=== PATIENT | male | born 1960 | race Caucasian/White ===

== ENCOUNTER → 2016-10-27 | Outpatient (CLI) | payer BC ==
[~2016-10-27] MED LIST: CZR50 PO; HYDC25 PO; SIMV20TA2 PO
[2016-10-27 14:00] LABS: BASO % 0.2 %; BASO ABS # 0.01 K/uL (0-0.2); COMPLETE YES; EOS % 2.8 %; HEMATOCRIT 45.5 % (42-52); IG% 0.2 %; LYMPH % 25.9 %; LYMPH ABS # 1.38 K/uL (1.2-3.4); MEAN CELL VOLUME 88.3 fL (80-100); MEAN CORPUSCULAR HEMOGLOBIN 31.5 pg (25-34); MEAN CORPUSCULAR HGB CONC 35.6 g/dl (32-36); MEAN PLATELET VOLUME 12.8 fL (7.4-10.4); MONO % 10.2 %; NEUT % 60.7 %; PLATELET COUNT 152 K/uL (130-400); RED BLOOD COUNT 5.15 M/uL (4.7-6.1); WHITE BLOOD COUNT 5.32 K/uL (4.8-10.8)
[2016-10-27 14:06] LABS: BLOOD UREA NITROGEN 30 mg/dl (7-18); BUN/CREATININE RATIO 34.4 (10-20); CALCIUM 8.9 mg/dl (8.5-10.1); CARBON DIOXIDE 29 mmol/L (21-32); CHLORIDE 108 mmol/L (98-107); CREATININE 0.86 mg/dl (0.60-1.40); GLUCOSE 98 mg/dl (70-99); SODIUM 142 mmol/L (136-145)
[2016-10-27 14:10] LABS: CHOLESTEROL 182 mg/dl (0-200); HDL CHOLESTEROL 60 mg/dl; TRIGLYCERIDES 91 mg/dl (0-150); VERY LOW DENSITY LIPOPROT CALC 18 mg/dl
== END | disposition home or self-care (01) ==
LOC: C.LABSPEC 12:43
PROVIDERS: ATTEND Internal Medicine
DX: E78.5 Hyperlipidemia, unspecified (principal); I10 Essential (primary) hypertension; M54.5 Low back pain

== ENCOUNTER → 2016-11-14 | Outpatient (CLI) | payer BC ==
--- NOTE | 2016-11-14 17:53 | DIAGNOSTIC IMAGING REPORT ---
MRI OF THE RIGHT SHOULDER CLINICAL HISTORY: Right shoulder pain. Limited range of motion. COMPARISON STUDY: No priors. TECHNIQUE: MRI of the right shoulder was performed utilizing various T1 and T2 weighted sequences in the axial, sagittal, coronal planes. IV contrast was not administered for this examination. Note that interpretation is suboptimal without plain film correlate. FINDINGS: Rotator cuff: There is tendinopathy with full-thickness rupture and retraction of both the supraspinatus and infraspinatus tendons. The tendons are retracted by at least 4 cm. There is tendinopathy with mild partial thickness tearing of the subscapularis tendon. The majority the fibers appear intact. The teres minor is preserved. There is subacromial and subdeltoid bursal fluid. Productive changes identified at the acromioclavicular joint. Biceps tendon: There is tendinopathy with high-grade partial-thickness tearing of the long head of the biceps tendon. The biceps tendon is likely Located within the bicipital groove. The anchor is maintained. Labrum: There is a large SLAP tear of the glenoid labrum. Shoulder joint: There is trace joint effusion. The articular cartilage over the glenoid appears maintained. There is marrow edema/contusion identified within the superior aspect of the glenoid. An age indeterminant Hill-Sachs lesion is suggested in the humeral head. There is no significant marrow edema at this site. A soft tissue Bankart lesion is suspected anteriorly. Mild superior subluxation of the humeral head is noted. Musculature and soft tissues: There is edema seen within the body of infraspinatus. Only minimal edema is identified within the body of supraspinatous. There is mild atrophy of both muscles, greater involving the infraspinatus. IMPRESSION: 1. There is full-thickness rupture of the supraspinatous and intraspinous tendons with at least 4 cm of retraction. 2. There is mild intramuscular edema involving supraspinatus and infraspinatus as well as mild atrophy. This is greater involving infraspinatus. 3. There is tendinopathy with high-grade partial thickness tearing of the long head of the biceps tendon. 4. Large SLAP tear of the glenoid labrum. 5. Suspect an age indeterminant and possibly chronic Hill-Sachs lesion in the humeral head. A soft tissue Bankart lesion is suspected. Correlate for a history of previous shoulder dislocation. 6. Tendinopathy and partial thickness tearing is seen involving the subscapularis tendon. 7. There is significant marrow edema involving the superior aspect of the glenoid, which could be on a degenerative basis or represent contusion. Electronically signed by: Keegan Matute M.D. 11/14/2016 5:51 PM Dictated Date/Time: 11/14/2016 5:41 PM
== END | disposition home or self-care (01) ==
LOC: C.MRIBC 15:52
PROVIDERS: ATTEND Orthopaedic Surgery Adult Reconstructive Orthopaedic Surgery
DX: M25.511 Pain in right shoulder (principal)

== ENCOUNTER 2018-09-26 05:42 | Inpatient (IN) ==
--- NOTE | 2018-09-09 14:41 | PAT Medication Instructions ---
Medication Instructions Date of Service September 09, 2018 Home Medications losartan-hydrochlorothiazide 1 tab PO QAM multivitamin 1 tab PO QAM omega 7-gjf-rvr-fish oil [Fish Oil] 1 cap PO HS simvastatin 40 mg PO HS STOP taking 2 weeks before surgery (or as soon as possible if surgery is within 2 weeks) omega 8-ery-ici-fish oil [Fish Oil] 1 cap PO HS DO NOT take the morning of surgery losartan-hydrochlorothiazide 1 tab PO QAM multivitamin 1 tab PO QAM Take evening before surgery simvastatin 40 mg PO HS Other Notes If you have any questions please call us at [phone] or [phone] or [phone] or [phone]
--- NOTE | 2018-09-09 15:00 | Anesthesiology Consultation ---
Date of Service September 09, 2018 Assessment & Plan (1) Encounter for pre-operative examination: Chart Review Chart Review: Acceptable Risk for Surgery and Patient seen in Pre Admission Testing Teaching & Discussion Pre-Anesthesia Teaching/Discussion Notes: Instructed NPO after midnight before surgery,except medications with 15 cc of water. Medication instructions provided according to the PAT guidelines. History Surgery Operation Date: 09/26/18 07:45 Proposed Procedures p L2-S1 Posterior Lumbar Decompress/Fusion Possible Iliac Bolts - Haider Olivares DO Height/Weight Height: 6 ft 0.25 in Weight: 106.4 kg Allergies Allergy/AdvReac Type Severity Reaction Status Date / Time No Known Allergies Allergy Verified 09/03/18 07:28 Medications Home Medications Medication Instructions Recorded Confirmed Last Taken losartan-hydrochlorothiazide 1 tab PO QAM 09/03/18 09/03/18 Unknown multivitamin 1 tab PO QAM 09/03/18 09/03/18 Unknown omega 5-glf-smd-fish oil [Fish Oil] 1 cap PO HS 09/03/18 09/03/18 Unknown simvastatin 40 mg PO HS 09/03/18 09/03/18 Unknown Past Medical History Medical History Chronic back pain WITH LLE RADICULOPATHY Hyperlipidemia Hypertension Obesity Past Family History Family History Father Family hx of colon cancer Past Surgical History Surgical History H/O knee surgery LEFT H/O shoulder surgery B/L History of colonoscopy History of neck surgery MULTIPLE; FUSION Past Anesthesia History No Hx of Anesthesia Complications (EXCEPT PONV X 1 EPISODE) and No Family Hx of Anesthesia Complications History of PONV Yes (X1 EPISODE) Motion Sickness Screening History of Motion Sickness: No Social History Smoking Status: Never smoker Do You Dip or Chew Tobacco: No (QUIT 15-20 YRS AGO) Hx Alcohol Use: Yes (RARELY) Alcohol type: hard liquor alcohol intake frequency: holidays/special occasions only Hx Substance Use: No substance use type: does not use Exercise / Class Metabolic Activity II 4-5 Yardwork/Stairs/Walk up hill Review of Systems LBP with LLE radiculopathy. Patient denies chest pain, shortness of breath, reflux, cough, wheezing, palpitations. Physical Exam Vital Signs VITALS BP 154/98 P 59 TEMP 97.8 SP02 95%RA RESP 18 PHYSICAL Mildly decreased cervical extension 2/2 cervicalgia/prior fusion. Full TMJ range of motion. TMD 4 finger breaths Mallampati Score 2 Dentition: intact, cap on molar Lungs: clear throughout to auscultation Cardiac: regular rate and rhythm, no murmurs noted Spine: normal Carotid arteries: negative bruit Extremities: no edema Testing Electrocardiogram Date: 09/09/18 Findings: + SB @ (59) Chest X-Ray Date: 09/09/18 Findings: + NAD Anterior cervical spine fusion is noted. Laboratory Results 09/09/18 15:20 09/09/18 15:20 Blood Type O Positive 09/09/18 15:20 Antibody Screen NEGATIVE 09/09/18 15:20 PT 10.3 Seconds (9.0-12.0) 09/09/18 15:20 INR 1.0 (0.9-1.1) 09/09/18 15:20 APTT 28.2 Seconds (21.0-31.0) 09/09/18 15:20 Urine Color Yellow 09/09/18 15:20 Urine Appearance Clear (Clear) 09/09/18 15:20 Urine pH 5.5 (4.5-7.5) 09/09/18 15:20 Ur Specific [place] 1.023 (1.000-1.030) 09/09/18 15:20 Urine Protein Negative (Negative) 09/09/18 15:20 Urine Glucose (UA) Negative (Negative) 09/09/18 15:20 Urine Ketones Negative (Negative) 09/09/18 15:20 Urine Nitrite Negative (Negative) 09/09/18 15:20 Ur Leukocyte Esterase Negative (Negative) 09/09/18 15:20
--- NOTE | 2018-09-09 15:43 | XRay Report ---
XR chest Pre-admission PA/Lat CLINICAL HISTORY: Preoperative evaluation. COMPARISON STUDY: Chest radiograph March 26, 2013. FINDINGS: Anterior cervical spine fusion is noted. There is no pneumothorax or pleural effusion. Ther e is no consolidation or evidence for pulmonary edema. Cardiac size is normal. Mediastinal contours a re normal. The appearance of the chest is unchanged. IMPRESSION: No acute cardiopulmonary findings. Electronically signed by: Andrzej Adams M.D. 09/09/2018 3:41 PM
[2018-09-09 15:56] LABS: Basophils # (auto) 0.01 K/uL (0-0.2); Basophils % (auto) 0.2 %; Eosinophils # (auto) 0.07 K/uL (0-0.5); Eosinophils % (auto) 1.1 %; Hematocrit (blood only) 46.2 % (42-52); Hemoglobin 16.2 g/dL (14.0-18.0); Lymphocytes # (auto) 2.08 K/uL (1.2-3.4); Lymphocytes % (auto) 33.5 %; Mean Corpuscular Hgb Conc 35.1 g/dL (32-36); Mean Corpuscular Volume 88.8 fL (80-100); Mean Platelet Volume 11.9 fL (7.4-10.4); Monocytes # (auto) 0.41 K/uL (0.11-0.59); Monocytes % (auto) 6.6 %; Neutrophils # (auto) 3.64 K/uL (1.4-6.5); Neutrophils % (auto) 58.6 %; Platelet Count 144 K/uL (130-400); RDW Coefficient of Variation 12.8 % (11.5-14.5); RDW Standard Deviation 41.1 fL (36.4-46.3); White Blood Count 6.21 K/uL (4.8-10.8)
[2018-09-09 16:05] LABS: BUN Creatinine Ratio 23.5 (10-20); Calcium 8.6 mg/dl (8.5-10.1); Est GFR (African American) 98.1; Est GFR (Non-African American) 84.6
[2018-09-09 16:06] LABS: Partial Thromboplastin Ratio 1.1; Partial Thromboplastin Time 28.2 Seconds (21.0-31.0); Prothrombin Time 10.3 Seconds (9.0-12.0)
[2018-09-09 16:18] LABS: Appearance Urine Clear (Clear); Bilirubin Urine Negative (Negative); Blood Urine Negative (Negative); Color Urine Yellow; Glucose Urine UA Negative (Negative); Ketones Urine Negative (Negative); Leukocyte Esterase Urine Negative (Negative); Nitrite Urine Negative (Negative); Protein Urine Negative (Negative); Specific Gravity Urine 1.023 (1.000-1.030); Urobilinogen Urine Negative (Negative); pH Urine 5.5 (4.5-7.5)
[~2018-09-26 05:42] MED LIST changes: -CZR50 PO; +GABAPENTIN 300 MG x 2 PO SCH; -HYDC25 PO; -SIMV20TA2 PO
[2018-09-26] MEDS ORDERED: CEFAZOLIN 2000MG 2,000 MG/15 ML SYR IV SCH (06:00)
[2018-09-26] MEDS ORDERED: CeleBREX 200 MG CAP PO SCH (06:00)
[2018-09-26] MEDS ORDERED: ACETAMINOPHEN 500 MG TAB PO SCH (06:00)
[2018-09-26] MEDS ORDERED: GABAPENTIN 300 MG x 2 PO SCH (06:00)
[2018-09-26] MEDS ORDERED: LR 15ML/HR IV SCH (06:00)
[2018-09-26] MEDS ORDERED: ATROPINE SULFATE 0.1 MG/ML 10ML SYR IV PRN (06:21)
[2018-09-26] MEDS ORDERED: ePHEDrine sulfate 50 MG/ML AMP IV PRN (06:21)
[2018-09-26] MEDS ORDERED: ONDANSETRON INJ 2 MG/ML 2 ML VIAL IV PRN ×2 (06:21→11:58)
[2018-09-26] MEDS ORDERED: HYDROmorphone INJ 2 MG/ML SYR/VIAL IV PRN (06:21)
[2018-09-26] MEDS ORDERED: LABETALOL HCL IV 5 MG/ML 20ML IV PRN (06:21)
[2018-09-26] MEDS ORDERED: fentaNYL citrate 100 MCG/2 ML VIAL IV PRN (06:21)
[2018-09-26] MEDS ORDERED: ROCURONIUM BROMIDE 10 MG/ML 5 ML VIAL ONE (06:48)
[2018-09-26] MEDS ORDERED: GLYCOPYRROLATE 0.2 MG/ML VIAL ONE (06:48)
[2018-09-26] MEDS ORDERED: LIDOCAINE HCL 2% 2 ML VIAL/AMP(20MG/ML) INFIL ONE (06:48)
[2018-09-26] MEDS ORDERED: PROPOFOL IV EMULSION 10 MG/ML 20 ML VIAL IV ONE (06:48)
[2018-09-26] MEDS ORDERED: MIDAZOLAM HCL 1 MG/ML 2ML VIAL ONE (06:48)
[2018-09-26] MEDS ORDERED: fentaNYL citrate 100 MCG/2 ML VIAL ONE ×2 (06:48→08:11)
[2018-09-26] MEDS ORDERED: BUPIVACAINE/EPINEPHRINE 0.5% MPF 1:200,000 30 ML VIAL ONE (06:50)
[2018-09-26] MEDS ORDERED: BACITRACIN INJ 50,000 UNIT VIAL ONE (06:50)
--- NOTE | 2018-09-26 07:31 | History & Physical Bridge Note ---
Date of Service September 26, 2018 History & Physical Bridge Note I have examined the patient, reviewed the History & Physical and in the interval since the performance of the History & Physical I have noted the following changes of clinical significance: no changes noted
--- NOTE | 2018-09-26 07:32 | History & Physical Report ---
Date of Service September 26, 2018 Assessment & Plan (1) Neurogenic claudication due to lumbar spinal stenosis: Posterior lumbar decompression and fusion L2-S1 with possible iliac bolts Present on Admission?: Yes History of Present Illness Chief Complaint: Back and leg pain Primary Care Provider: Amrik Beavers MD This is a 58-year-old male who presents with chronic persistent back and leg pain. After failing extensive course of nonoperative care is here for surgical intervention. Allergies Allergy/AdvReac Type Severity Reaction Status Date / Time No Known Allergies Allergy Verified 09/26/18 05:58 Home Medications Home Medications Medication Instructions Recorded Confirmed Type losartan-hydrochlorothiazide 1 tab PO QAM 09/03/18 09/26/18 History multivitamin 1 tab PO QAM 09/03/18 09/26/18 History omega 8-ytv-tur-fish oil [Fish Oil] 1 cap PO HS 09/03/18 09/26/18 History simvastatin 40 mg PO HS 09/03/18 09/26/18 History Past Med/Surg History Medical History Chronic back pain WITH LLE RADICULOPATHY Hyperlipidemia Hypertension Obesity Surgical History H/O knee surgery LEFT H/O shoulder surgery B/L History of colonoscopy History of neck surgery MULTIPLE; FUSION Family History Father Family hx of colon cancer Social History Preferred Language: Estonian Communication Ability: Effective Practice Assistant Required: No Beliefs That Will Affect Care: None Current Living Situation: Spouse Other Information That Helps Us Care for You: No Feels Safe at Home: Yes Safety Concerns: Feels Safe At This Time Smoking Status: Never smoker Hx Alcohol Use: Yes (RARELY) Hx Substance Use: No Physical Exam Vital Signs (Past 24 Hours): Last Vital Signs Temp 36.7 C 09/26/18 06:36 Pulse 65 09/26/18 06:36 Resp 18 09/26/18 06:36 BP 162/99 H 09/26/18 06:36 Pulse Ox 96 09/26/18 06:36 Results & Data Medications Administered Acetaminophen (Tylenol) 1,000 mg PO PREOP RAISSA Stop: 09/26/18 18:00 Last Admin: 09/26/18 06:21 Dose: 1,000 mg Documented by: [id number] Celecoxib (Celebrex) 200 mg PO PREOP RAISSA Stop: 09/26/18 18:00 Last Admin: 09/26/18 06:21 Dose: 200 mg Documented by: [id number] Gabapentin (Neurontin) 600 mg PO PREOP RAISSA Stop: 09/26/18 18:00 Last Admin: 09/26/18 06:21 Dose: 600 mg Documented by: [id number] Lactated Ringer's (Lr) 1,000 mls @ 15 mls/hr IV .Q24H RAISSA Stop: 09/27/18 05:59 Last Admin: 09/26/18 06:22 Dose: 15 mls/hr Documented by: [id number]
[2018-09-26] MEDS ORDERED: ONDANSETRON INJ 2 MG/ML 2 ML VIAL ONE (08:09)
[2018-09-26] MEDS ORDERED: DEXAMETHASONE SOD INJ 4 MG/ML VIAL ONE (08:09)
[2018-09-26] MEDS ORDERED: HYDROmorphone INJ 2 MG/ML SYR/VIAL ONE (08:11)
[2018-09-26] MEDS ORDERED: PHENYLEPHRINE 100MCG/ML 5ML SYR ONE (08:22)
[2018-09-26] MEDS ORDERED: ePHEDrine sulfate 50 MG/ML SYR ONE (08:22)
[2018-09-26] MEDS ORDERED: FLOSEAL HEMOSTATIC MATRIX 10ML TOP ONE (08:29)
--- NOTE | 2018-09-26 10:42 | Operative Report ---
Post Operative Report Pre & Post Diagnosis Operation Date: 09/26/18 07:45 Pre-Op Diagnosis: LUMBAR SPINAL STENOSIS W/NEUROGENIC CLAUDICATION Post-Op Diagnosis: LUMBAR SPINAL STENOSIS W/NEUROGENIC CLAUDICATION Procedure Operation Date: 09/26/18 07:45 Actual Procedures #1 lumbar decompression bilateral medial facetectomies and foraminotomies L2-3 L3-4 L4-5 L5-S1. #2 posterior spinal fusion L2-3 L3-4 L4-5 L5-S1. #3 placement of posterior segmental instrumentation L2-S1. #4 interbody fusion L4-5 per #5 placement of titanium 10 x 26 mm at L4-5. #6 placement of locally harvested morselized autograft in the posterior gutters. #7 placement infuse collagen sponge bone mass graft in the posterior lateral gutters and ostial amp and interbody space. Surgeon Haider Olivares DO Rehabilitation Counsellor Loren Hanks Estimated Blood Loss 700 Findings Consistent with Post-Op Diagnosis Specimens None Description of Procedure Patient was met with preoperatively case discussed all questions addressed. After informed consent obtained patient was taken to the operative suite underwent intubation and placed in a prone position on the Jimmy table on top of the Carl frame. All bony prominences well-padded eyes inspected to ensure no external pressure placed upon the. This point the lumbar spine was prepped and draped in a normal sterile fashion. Sharp dissection with the assistance of Bovie cautery was performed down to and exposing the lamina and transverse processes of L2 L3-L4-L5 and sacral ala bilaterally. From a caudal to cephalad fashion complete laminectomy of L5 L4 L3 and L2 was performed including bilateral medial facetectomies and foraminotomies addressing severe spinal stenosis. Pedicle screws were then placed in L2 L3-L4-L5 and S1 levels bilaterally with the assistance of fluoroscopy and the appropriately sized pankaj contoured and placed. Through a transforaminal approach and left complete discectomy was performed in plate coated to subcortical bleeding bone and a 10 x 26 mm titanium cage filled with osteo-amp bone graft tapped in position. Rods were then locked into final position bilaterally. The transverse processes of L2 L3-L4-L5 and sacral ala bur to subcortical bleeding bone. Infuse collagen sponge master graft local autograft placed in the posterior lateral gutters. 15 round NICOLE drain inserted. Incision was then closed with 1 Vicryl fascia 2-0 Vicryl subcutaneously and 4-0 Monocryl for final skin closure. Please note Loren Hanks present throughout the entire procedure involved in patient positioning complex portions of the surgery and final skin closure. I attest to the content of the Intraoperative Record and any orders documented therein. Any exceptions are noted below.
--- NOTE | 2018-09-26 10:54 | Fluoroscopy Report ---
FL lumbar spine 2-3V CLINICAL HISTORY: L2-S1 LUMBAR DECOMPRESSION/FUSION POSSIBLE ILIAC BOLTS COMPARISON STUDY: Lumbar spine radiographs October 14, 2010. FLUOROSCOPY TIME: 5.7 seconds. FLUOROSCOPIC IMAGES: 4 FINDINGS: These images demonstrate an L4-L5 discectomy with interbody spacer placement. There is a po sterior decompression. There are bilateral pedicle screws at the L2, L3, L4, L5 and S1 levels with in terconnecting rods. Hardware is intact. There is mild levoscoliosis. IMPRESSION: Fluoroscopic images demonstrating an L4-5 discectomy and L2-S1 posterior fusion with dec ompression. Electronically signed by: Andrzej Adams M.D. 09/26/2018 10:53 AM
[2018-09-26] MEDS ORDERED: HYDROmorphone INJ 0.5 MG/0.5 ML SYR IV PRN (11:58)
[2018-09-26] MEDS ORDERED: DO NOT ADMINISTER PNEUMOCOCCAL VACCINE PRN (11:58)
[2018-09-26] MEDS ORDERED: SOD PHOSPHATE/SOD BIPHOSPHATE ENEMA 132 ML BTL PR PRN (11:58)
[2018-09-26] MEDS ORDERED: ONDANSETRON 4 MG TAB PO PRN (11:58)
[2018-09-26] MEDS ORDERED: FAMOTIDINE 20 MG TAB PO PRN (11:58)
[2018-09-26] MEDS ORDERED: ALUMINUM/MAGNESIUM SUSP 30 ML UDC PO PRN (11:58)
[2018-09-26] MEDS ORDERED: PROMETHAZINE HCL 12.5 MG in SODIUM CHLORIDE 0.9% 50 ML IV PRN (11:58)
[2018-09-26] MEDS ORDERED: METOCLOPRAMIDE HCL INJ 5 MG/ML 2 ML VIAL IV PRN (11:58)
[2018-09-26] MEDS ORDERED: MAGNESIUM HYDROXIDE SUSP 30 ML UDC PO PRN (11:58)
[2018-09-26] MEDS ORDERED: LORazepam 0.5 MG/1 ML VIAL IV PRN (11:58)
[2018-09-26] MEDS ORDERED: DO NOT ADMINISTER FLU VACCINE PRN (11:58)
[2018-09-26] MEDS ORDERED: BISACODYL 10 MG SUPP PR PRN (11:58)
[2018-09-26] MEDS ORDERED: LORazepam 0.5 MG TAB PO PRN (11:58)
--- NOTE | 2018-09-26 11:59 | Anesthesiology Progress Note ---
Date of Service September 26, 2018 Anesthesia Post Procedure Vital Signs Vital Signs: Temp Pulse Pulse Resp BP Pulse Ox 09/26/18 11:40 36.3 C L 48 L 12 102/59 L 96 09/26/18 11:30 36.3 C L 47 L 13 105/60 94 09/26/18 11:20 45 L 11 L 93/57 L 96 09/26/18 11:10 45 L 16 106/61 96 09/26/18 11:02 36.8 C 53 L 16 106/59 L 96 09/26/18 06:36 36.7 C 65 18 162/99 H 96 Notes Mental Status: alert / awake / arousable and participated in evaluation Patient Amnestic to Procedure: Yes Nausea / Vomiting: adequately controlled Pain: adequately controlled Airway Patency, RR, SpO2: stable & adequate BP & HR: stable & adequate Hydration State: stable & adequate Anesthetic Complications: no major complications apparent and Pt Satisfied with anesthetic care
[2018-09-26] MEDS ORDERED: NEOSTIGMINE METHYLSULFATE 1 MG/ML 10ML VIAL ONE (12:21)
[2018-09-26] MEDS: KETOROLAC 30 MG/ML VIAL IV SCH ×2 (13:29→19:35)
[2018-09-26] MEDS ORDERED: ACETAMINOPHEN 500 MG TAB PO PRN (14:00)
[2018-09-26] MEDS ORDERED: ACETAMINOPHEN 1,000 MG/100 ML VIAL IV PRN (14:00)
[2018-09-26] MEDS: CEFAZOLIN 2000MG 2,000 MG/15 ML SYR IV SCH ×2 (15:57→23:14)
[2018-09-26] MEDS: LACTATED RINGER'S 1,000 ML IV SCH (20:33)
[2018-09-26] MEDS: SIMVASTATIN 40 MG TAB PO SCH (20:33)
[2018-09-26] MEDS: DOCUSATE SODIUM/SENNA 50/8.6MG TAB PO SCH (20:33)
[2018-09-26] MEDS: OXYCODONE HCL IR 5 MG TAB (IMMEDIATE RELEASE) PO PRN (23:13)
[2018-09-27] MEDS: KETOROLAC 30 MG/ML VIAL IV SCH ×2 (00:35→05:57)
[2018-09-27] MEDS: POLYETHYLENE (MIRALAX) 17 GM PACK PO SCH ×3 (05:56→19:26)
[2018-09-27 06:24] LABS: Eosinophils # (auto) 0.02 K/uL (0-0.5); Eosinophils % (auto) 0.2 %; Hemoglobin 11.9 g/dL (14.0-18.0); Immature Granulocytes # (auto) 0.02 K/uL (0.00-0.02); Immature Granulocytes % (auto) 0.2 %; Lymphocytes # (auto) 1.54 K/uL (1.2-3.4); Lymphocytes % (auto) 14.1 %; Mean Corpuscular Volume 90.9 fL (80-100); Mean Platelet Volume 11.2 fL (7.4-10.4); Monocytes # (auto) 0.87 K/uL (0.11-0.59); Neutrophils # (auto) 8.47 K/uL (1.4-6.5); Neutrophils % (auto) 77.5 %; Platelet Count 110 K/uL (130-400); RDW Coefficient of Variation 13.2 % (11.5-14.5); RDW Standard Deviation 43.3 fL (36.4-46.3); Red Blood Count 3.85 M/uL (4.7-6.1); White Blood Count 10.92 K/uL (4.8-10.8)
[2018-09-27 06:53] LABS: BUN Creatinine Ratio 18.9 (10-20); Calcium 7.7 mg/dl (8.5-10.1); Creatinine Clr Calc Pharmacy 111.1 ml/min; Est GFR (African American) 105.9; Est GFR (Non-African American) 91.4; Potassium 3.6 mmol/L (3.5-5.1)
--- NOTE | 2018-09-27 08:26 | Anesthesiology Progress Note ---
Date of Service September 27, 2018 Anesthesia Post Procedure Vital Signs Vital Signs: Temp Pulse Pulse Resp BP BP Pulse Ox 09/27/18 07:04 36.7 C 63 18 100/66 95 09/27/18 03:03 36.7 C 64 16 106/67 95 09/26/18 22:57 36.4 C L 64 16 97/58 L 94 09/26/18 21:09 36.6 C 73 18 106/67 97 09/26/18 15:00 36.4 C L 72 18 99/63 L 93 09/26/18 13:58 54 L 18 107/67 96 09/26/18 13:00 75 18 89/54 L 93/65 L 95 09/26/18 12:28 53 L 16 102/63 91 09/26/18 12:16 36.7 C 51 L 12 104/66 95 09/26/18 12:00 36.7 C 51 L 12 104/66 95 09/26/18 11:40 36.3 C L 48 L 12 102/59 L 96 09/26/18 11:30 36.3 C L 47 L 13 105/60 94 09/26/18 11:20 45 L 11 L 93/57 L 96 09/26/18 11:10 45 L 16 106/61 96 09/26/18 11:02 36.8 C 53 L 16 106/59 L 96 Pain Intensity Lower Medial Back: Pain Intensity: 5 Notes Mental Status: alert / awake / arousable Patient Amnestic to Procedure: Yes Nausea / Vomiting: adequately controlled Pain: adequately controlled Airway Patency, RR, SpO2: stable & adequate BP & HR: stable & adequate Hydration State: stable & adequate Anesthetic Complications: no major complications apparent and Pt Satisfied with anesthetic care
[2018-09-27] MEDS: MULTIVITAMIN TAB PO SCH (09:19)
[2018-09-27] MEDS: TRAMADOL HCL 50 MG TABLET PO PRN ×2 (09:19→15:27)
[2018-09-27] MEDS: LOSARTAN/HCTZ 50/12.5MG TAB PO SCH (09:20)
--- NOTE | 2018-09-27 13:13 | Orthopedic Progress Note ---
Date of Service September 27, 2018 Assessment & Plan (1) Neurogenic claudication due to lumbar spinal stenosis: Patient is doing quite well. We will continue with physical therapy. Monitor NICOLE output. Advance his bowel regiment anticipate discharge home this weekend. Present on Admission?: Yes Subjective Patient's back pain is controlled leg symptoms are markedly improved. Physical Exam Vital Signs (Past 24 Hours): Last Vital Signs Temp 36.7 C 09/27/18 11:23 Pulse 73 09/27/18 11:23 Resp 17 09/27/18 11:23 BP 114/72 09/27/18 11:23 Pulse Ox 99 09/27/18 11:23 Physical Exam: On physical exam he is in the chair at the bedside. His medical device sales strength testing. He appears comfortable.
[2018-09-27] MEDS: SODIUM CHLORIDE 0.9% 1000ML 1,000 ML IV SCH ×2 (15:25→19:53)
[2018-09-27] MEDS: DOCUSATE SODIUM/SENNA 50/8.6MG TAB PO SCH (21:00)
[2018-09-27] MEDS: SIMVASTATIN 40 MG TAB PO SCH (21:01)
[2018-09-27] MEDS: OXYCODONE HCL IR 5 MG TAB (IMMEDIATE RELEASE) PO PRN (23:42)
[2018-09-28] MEDS: POLYETHYLENE (MIRALAX) 17 GM PACK PO SCH (00:19)
[2018-09-28] MEDS: OXYCODONE HCL IR 5 MG TAB (IMMEDIATE RELEASE) PO PRN ×3 (09:37→23:43)
[2018-09-28] MEDS: LOSARTAN/HCTZ 50/12.5MG TAB PO SCH (09:37)
[2018-09-28] MEDS: MULTIVITAMIN TAB PO SCH (09:37)
--- NOTE | 2018-09-28 10:20 | Orthopedic Progress Note ---
Date of Service September 28, 2018 Assessment & Plan (1) Neurogenic claudication due to lumbar spinal stenosis: This time we will continue physical therapy finances activity as tolerated most likely discharge home tomorrow. Present on Admission?: Yes Subjective Patient's back pain is controlled leg symptoms improved. Physical Exam Vital Signs (Past 24 Hours): Last Vital Signs Temp 37.0 C 09/28/18 08:37 Pulse 75 09/28/18 08:37 Resp 18 09/28/18 08:37 BP 121/84 09/28/18 08:37 Pulse Ox 96 09/28/18 08:37 Physical Exam: Patient is in the chair at the bedside. Is good strength test ing. Appears comfortable.
[2018-09-28] MEDS: LACTATED RINGER'S 1,000 ML IV SCH ×2 (13:37→13:38)
[2018-09-28] MEDS: SIMVASTATIN 40 MG TAB PO SCH (20:36)
[2018-09-28] MEDS: DOCUSATE SODIUM/SENNA 50/8.6MG TAB PO SCH (20:36)
[2018-09-29] MEDS: OXYCODONE HCL IR 5 MG TAB (IMMEDIATE RELEASE) PO PRN ×2 (07:29→12:21)
[2018-09-29] MEDS: LOSARTAN/HCTZ 50/12.5MG TAB PO SCH (08:29)
[2018-09-29] MEDS: MULTIVITAMIN TAB PO SCH (08:29)
--- NOTE | 2018-09-29 11:25 | Discharge Summary ---
Date of Service September 29, 2018 Admission HPI Per Admitting Provider This is a 58-year-old male who presents with chronic persistent back and leg pain. After failing extensive course of nonoperative care is here for surgical intervention. Principal Diagnosis Lumbar spinal stenosis with neurogenic claudication Discharge Data Allergies Allergy/AdvReac Type Severity Reaction Status Date / Time No Known Allergies Allergy Verified 09/26/18 05:58 Consultations 09/26/18 11:58 Consult Case Management - Discharge Planning Routine Procedures Performed Operation Date: 09/26/18 07:45 Actual Procedures p L2-S1 Posterior Lumbar Decompress, Instrumented Fusion, Use of Osteoamp and Infuse. - Haider Olivares DO Ordered Studies 09/26/18 07:45 FL fluoroscopy <1hr Routine FL lumbar spine 2-3V Routine Hospital Course (1) Neurogenic claudication due to lumbar spinal stenosis: Patient underwent multilevel lumbar decompression fusion tolerated this well was taken to the orthopedic floor postoperative. Postop day 1 he was up and ambulating well. His leg pain improved. Progressive postop day #2 on postop day #3. Subsequently discharged home. Discharge orders and instructions found in the chart for further review. Total Time Total Time Spent Total Time Spent (In Minutes): Not applicable Discharge Plan Discharge Items Patient Disposition: Home - Self-Care Reason For Visit: LUMBAR SPINAL STENOSIS W/NEUROGENIC CLAUDICATION Discharge Diagnosis: lumbar stenosis Discharge Goals: Decrease discomfort Activity: Per 'Additional Instructions' section Non-emergency contact: Primary Care Provider Call non-emergency contact if: you have any medication questions Follow-up/Referrals: Amrik Beavers MD [Primary Care Provider] - Diet: Regular Addtl Provider Instructions: ACTIVITY RECOMMENDATIONS: SELF CARE INSTRUCTIONS AFTER THORACIC/LUMBAR FUSIONS 1. You may walk to your tolerance. It is good exercise for your legs and back. Expect some back and intermittent leg aches and pains. 2. You may perform "counter-top" level activities (make a sandwich, sky with a project, etc.). 3. No bending or lifting of more than 10 pounds or back twisting of any nature (roll like a log when turning in bed). 4. You may ride in a car for 20-30 minutes at a time. No driving until after your first visit with your doctor. 5. Frequent changes of position and restricting sitting to 30 minutes at a time will help limit the amount of back spasms and stiffness you may experience. 6. You may discontinue the use of ambulatory aids (cane, crutches, etc.) once your strength and confidence allow. 7. You may wood tile installation helper the shower and let water strike your incision when you arrive home at least once daily. Do not take a tub bath, sit in a hot tub or go into a swimming pool until after your first recheck in the office. SPECIAL CARE INSTRUCTIONS: VERY IMPORTANT TO READ AND REVIEW A. Your surgical incision has been closed with a cosmetic suture under the skin that will dissolve in about 6 weeks. In 14 days, you can use a pair of clean scissors and cut the suture that is left outside of the skin at the ends of your incision. 1. The small skin tapes can be removed 7 days after surgery if they have not fallen off by that point. 2. You may keep the wound open to air as much as possible to promote healing after post-op day number 5 unless told otherwise by your doctor. 3. If you think the wound looks like it is becoming infected (redness or worsening drainage) and/or you are experiencing fever, chill or worsening back pain and muscle spasms, contact the office so that we may evaluate you as soon as possible. B. Complications are uncommon, but please contact us if you have any signs or symptoms of: 1. wound infection (fever higher than 102.5 degrees F, redness, separation of wound, drainage, or increasing pain from the incision) 2. blood clots in legs (pain, swelling, redness and warmth in legs) 3. urinary tract infection (fever higher than 102.5 degrees F, burning upon urination or increased frequency of urination) 4. nerve problems (inability to walk on your toes or heels, numbness, loss of bowel or bladder control) 5. any other symptoms that concern you C. Please call the office at if you have any concerns or questions about your operation or recovery. D. No smoking! Smoking drastically decreases the chance of a solid fusion. E. Do not take any anti-inflammatory medications (Indocin, Advil, Motrin, Aspirin, Naprosyn, etc.) as these may inhibit the chance of a solid fusion. Tylenol is okay to take for pain. MANAGING PAIN AFTER SPINAL SURGERY 1. Narcotic medication is intended for short-term use and will be provided for surgical pain. Surgical pain usually lasts for a period of 4-6 weeks. Narcotic medication includes Percocet, Vicodin, Darvocet, Tylenol #3 or Lortab. 2. Longer-term pain is more appropriately treated with non-narcotic medication such as Tylenol ES. 3. Muscle spasm is not appropriately treated with narcotics. Muscle relaxers such as Soma, Flexeril or Skelaxin can be used along with Tylenol ES. 4. Remember that we all live with some "aches and pains". This is not unusual or uncommon after an injury or as we get older. a. Back pain is expected and may include muscle spasms for 4 to 6 weeks after surgery. The pain should gradually improve. If the pain worsens for no apparent reason, please contact the office. b. Intermittent leg pain may also be experienced and should not be concerned about unless it worsens for no apparent reason. If so, please contact the office. 5. We will provide appropriate medication within the normal guidelines of their prescribed use. We will also be very cautious and aware of potential abuse and extended duration of patients' medication needs. a. Pain medications are for your comfort and to assist with sleep and rest so that the tissue can heal. They are not provided in order to return to normal activity and should not be used through the day. To do so or worsening pain at night can result from ongoing tissue damage and development of tolerance to the prescribed medicine. 6. Please allow 2-3 days to process refills. Prescriptions will not be mailed but must be picked up at the office. FOLLOW UP VISIT: Keep your scheduled follow-up appointment. Any questions, please call the office at . Prescriptions: New tramadol 50 mg Tablet 50 mg PO Q4H PRN (Reason: Pain, Mild) Qty: 30 RF: 0 oxycodone 5 mg Tablet 5 mg PO Q4H PRN (Reason: Pain, Severe) Qty: 30 RF: 0 Continued simvastatin 40 mg Tablet 40 mg PO HS RF: 0 losartan-hydrochlorothiazide 50-12.5 mg Tablet 1 tab PO QAM RF: 0 multivitamin Tablet 1 tab PO QAM RF: 0 omega 5-hcl-vya-fish oil [Fish Oil] 1,000 mg (120 mg-180 mg) Capsule 1 cap PO HS RF: 0 Stand-Alone Forms: [facility] Discharge Orders: Discharge Order (Routine); Ordered 09/29/18 Ordered By: Haider Olivares Admission Data Admit Date/Time: 09/26/18 10:43 Attending Provider: Haider Olivares Admit Provider: Haider Olivares Primary Care Provider: Amrik Beavers Service: Surgical Services Other Interventions: Discharge Summary Assessment (RN) Last Done: 09/29/18 11:18
== END 2018-09-29 12:32 | disposition home or self-care (01) | DRG 455 ==
LOC: ASU 05:42 → 3E 10:43

== ENCOUNTER 2023-11-05 10:14 | Inpatient (IN) ==
--- NOTE | 2023-10-29 10:36 | Anesthesiology Consultation ---
Date of Service October 29, 2023 Assessment & Plan (1) Encounter for pre-operative examination: Chart Review Chart Review: Acceptable Risk for Surgery (pending surgeon ordered PCP clearance and CBC with diff DOS ) and Patient NOT seen in Pre Admission Testing - Awaiting PCP clearance (patient in the process of trying to set up (S)) - Check CBC with diff stat DOS (not done preoperatively) - Check BSG AM DOS -Infectious Disease screening: Per PAT nursing assessment on 10/23/23. No known infectious disease contacts in past 10 days or current infectious disease sym ptoms. No recent travel outside the country. History Surgery Operation Date: 11/05/23 10:05 Proposed Procedures p T10-L2 Decompression and Fusion Spinal Cord Monitoring - Haider Olivares, Height/Weight Height: 6 ft Weight: 111.13 kg Allergies Allergy/AdvReac Type Severity Reaction Status Date / Time No Known Allergies Allergy Verified 10/23/23 09:50 Medications Home Medications Medication Instructions Recorded Confirmed Last Taken simvastatin 40 mg tablet 40 mg PO HS #90 tabs 07/04/23 10/23/23 Unknown alfuzosin 10 mg tablet,extended 10 mg PO QDL 10/23/23 10/23/23 Unknown release 24 hr losartan 50 mg-hydrochlorothiazide 0.5 tab PO QAM 10/23/23 10/23/23 Unknown 12.5 mg tablet Past Medical History Medical History (Updated 10/29/23 @ 10:43 by Karie Zuniga PA-C) Chronic back pain WITH LLE RADICULOPATHY Diabetes mellitus pt denies DM noted per previous [place] PCP records (pt now follows with [facility])- Hgb A1C 6.9 on 10/24/23 Hyperlipidemia Hypertension Obesity PONV (postoperative nausea and vomiting) Past Family History Family History Father Family hx of colon cancer Colorectal cancer Mother Breast cancer Grandmother (Maternal) Breast cancer Past Surgical History Surgical History H/O shoulder surgery B/L History of colonoscopy History of left knee replacement History of lumbar surgery History of neck surgery MULTIPLE; FUSION. ROM WNL per pt report. Social History Smoking Status: Never smoker tobacco type: smokeless tobacco Do You Dip or Chew Tobacco: No Hx Alcohol Use: Yes (RARELY) Alcohol type: hard liquor alcohol intake frequency: holidays/special occasions only Hx Substance Use: No substance use type: does not use Lab Results Anesthesia Preop Results Results Anesthesia Widget: Na 139 mmol/L (136-145) 10/24/23 K 4.2 mmol/L (3.5-5.1) 10/24/23 Cl 104 mmol/L (98-107) 10/24/23 CO2 28 mmol/L (21-32) 10/24/23 BUN 22 mg/dl (6-23) 10/24/23 Creat 0.79 mg/dl (0.6-1.4) 10/24/23 Glucose Level 102 mg/dl (70-99(Fasting)) H 10/24/23 HA1c 6.9 % (4.5-5.6) H 10/24/23 Testing Electrocardiogram Date: 10/24/23 Findings: + NSR @ (61bpm) Normal EKG per cardio Chest X-Ray Date: 10/24/23 Findings: + NAD FINDINGS: PA and lateral chest radiographs are compared to study dated 09/09/2018. The cardiomediastinal silhouette is top normal for projection. There is mild bibasilar scarring/atelectasis. The lungs and pleural spaces are otherwise clear. There is no pneumothorax. The skeletal structures are osteopenic. The bony thorax appears intact. Hardware is seen in the lower cervical spine as well as the upper lumbar spine. Arthritic change is noted in the shoulders.
[2023-11-05] MEDS: LR 15ML/HR IV SCH (10:47)
[2023-11-05] MEDS: LR 60ML/HR IV SCH (10:47)
[2023-11-05] MEDS: ACETAMINOPHEN 500 MG TAB PO SCH (10:48)
[2023-11-05] MEDS: GABAPENTIN 600 MG DOSE PO SCH (10:48)
[2023-11-05] MEDS: CeleBREX 200 MG CAP PO SCH (10:48)
[2023-11-05 10:58] LABS: Basophils # (auto) 0.01 K/uL (0.00-0.20); Basophils % (auto) 0.2 %; Eosinophils # (auto) 0.08 K/uL (0.00-0.50); Eosinophils % (auto) 1.4 %; Hemoglobin 16.5 g/dl (14.0-18.0); Immature Granulocytes # (auto) 0.01 K/uL (0.01-0.20); Immature Granulocytes % (auto) 0.2 %; Lymphocytes # (auto) 1.42 K/uL (1.20-3.40); Mean Corpuscular Hemoglobin 30.2 pg (25.0-34.0); Mean Corpuscular Hgb Conc 35.1 g/dL (32.0-36.0); Mean Corpuscular Volume 86.1 fL (80.0-100.0); Mean Platelet Volume 11.9 fL (9.4-12.4); Monocytes # (auto) 0.58 K/uL (0.11-0.59); Monocytes % (auto) 9.8 %; Neutrophils # (auto) 3.82 K/uL (1.40-6.50); Neutrophils % (auto) 64.4 %; Platelet Count 175 K/uL (130-400); RDW Coefficient of Variation 12.1 % (11.5-14.5); RDW Standard Deviation 37.8 fL (36.4-46.3); Red Blood Count 5.46 M/uL (4.70-6.10); White Blood Count 5.92 K/ul (4.8-10.8)
[2023-11-05] MEDS ORDERED: LIDOCAINE 2% 2 ML VIAL/AMP(20MG/ML) INFIL ONE (10:58)
[2023-11-05] MEDS ORDERED: MIDAZOLAM HCL 1 MG/ML 2ML VIAL ONE (10:58)
[2023-11-05] MEDS ORDERED: ROCURONIUM BROMIDE 10 MG/ML 5 ML VIAL IV ONE ×2 (10:58→13:27)
[2023-11-05] MEDS ORDERED: SUGAMMADEX SODIUM 200 MG/2 ML VIAL IV ONE (10:58)
[2023-11-05] MEDS ORDERED: PROPOFOL IV EMULSION 10 MG/ML 20 ML VIAL IV ONE (10:58)
[2023-11-05] MEDS ORDERED: fentaNYL citrate PF 100 MCG/2 ML VIAL ONE (10:58)
[2023-11-05 11:11] LABS: Partial Thromboplastin Ratio 1.1; Partial Thromboplastin Time 30 Seconds (21-31)
[2023-11-05] MEDS ORDERED: ONDANSETRON INJ 2 MG/ML 2 ML VIAL IV PRN ×2 (11:19→17:12)
[2023-11-05] MEDS: SCOPOLAMINE 1 MG TDSY TD ONE ×2 (11:19)
[2023-11-05] MEDS ORDERED: ePHEDrine sulfate 50 MG/ML AMP IV PRN (11:19)
[2023-11-05] MEDS ORDERED: PROMETHAZINE HCL 6.25 MG in SODIUM CHLORIDE 0.9% 50 ML IV PRN (11:19)
[2023-11-05] MEDS ORDERED: HYDROmorphone INJ 1 MG/ML SYRINGE IV PRN ×2 (11:19→17:12)
[2023-11-05] MEDS ORDERED: ATROPINE SULFATE 0.1 MG/ML 10ML SYR IV PRN (11:19)
--- NOTE | 2023-11-05 12:18 | History & Physical Bridge Note ---
Date of Service November 05, 2023 History & Physical Bridge Note I have examined the patient, reviewed the History & Physical and in the interval since the performance of the History & Physical I have noted the following changes of clinical significance: no changes noted
--- NOTE | 2023-11-05 12:21 | History & Physical Report ---
Date of Service November 05, 2023 Assessment & Plan (1) Myelopathy concurrent with and due to spinal stenosis of thoracic region: Plan: T10-L2 decompression and fusion History of Present Illness Chief Complaint: Bilateral leg weakness Primary Care Provider: James Person DO This is a 63-year-old male who presents with evidence of thoracic myelopathy. He is subsequently here for surgical invention. Allergies Allergy/AdvReac Type Severity Reaction Status Date / Time No Known Allergies Allergy Verified 11/05/23 10:35 Home Medications Medication Instructions Recorded Confirmed Type simvastatin 40 mg tablet 40 mg PO HS #90 tabs 07/04/23 11/05/23 Rx alfuzosin 10 mg tablet,extended 10 mg PO QDL 10/23/23 11/05/23 History release 24 hr losartan 50 mg-hydrochlorothiazide 0.5 tab PO QAM 10/23/23 11/05/23 History 12.5 mg tablet Past Med/Surg History Medical History (Updated 11/05/23 @ 12:21 by Haider Olivares DO) PONV (postoperative nausea and vomiting) Diabetes mellitus pt denies DM noted per previous [place] PCP records (pt now follows with [facility])- Hgb A1C 6.9 on 10/24/23 Obesity Chronic back pain WITH LLE RADICULOPATHY Hyperlipidemia Hypertension Surgical History History of lumbar surgery History of left knee replacement History of colonoscopy H/O shoulder surgery B/L History of neck surgery MULTIPLE; FUSION. ROM WNL per pt report. Family History Father Family hx of colon cancer Colorectal cancer Mother Breast cancer Grandmother (Maternal) Breast cancer Social History Smoking Status: Never smoker Second Hand Exposure: No; Do You Dip or Chew Tobacco: No; Hx Alcohol Use: Yes (RARELY) Alcohol type: hard liquor Hx Substance Use: No Preferred Language: Thai Communication Ability: Effective Installation Engineer Required: No Beliefs That Will Affect Care: None marital status: Current Living Situation: Spouse current occupational status: employed Feels Safe at Home: Yes Safety Concerns: Feels Safe At This Time Dental Care, Regularly: Yes Physical Activity Frequency: Daily Assistive Devices: Glasses Physical Exam Physical Exam: Patient is alert and oriented Heart regular in rhythm Lungs clear Results & Data Results & Data Vital Signs (Past 12 Hours) Vital Signs Temp Pulse Resp BP Pulse Ox O2 Del Method 11/05/23 10:30 36.4 C L 92 H 20 139/93 93 Room Air
[2023-11-05] MEDS ORDERED: ACETAMINOPHEN 1000 MG/100 ML IV IV ONE (12:40)
[2023-11-05] MEDS: ceFAZolin 2000MG 2,000 MG/15 ML SYR IV SCH ×2 (12:51→20:06)
[2023-11-05] MEDS: BUPIVACAINE/EPINEPHRINE 0.25% 1:200,000 30 ML VIAL ONE (13:34)
[2023-11-05] MEDS: ceFAZolin 330 MG/ML 1 GM VIAL ONE (13:34)
--- OUTSIDE RECORDS SUMMARY | 2023-11-05 14:37 | External Medical Summary | Summary of Care ---
Author Name Unknown Organization [facility] Address [address] [place] [address] Phone [phone] Care Team Providers Care Spa Coordinator Name Role Phone James Person DO Primary Care Provider + Reason for Visit * Reason Comments pre-op exam Patient is here for pre op exam. Pt had EKG and all other testing done 10/25/2023. Encounter Details Date Type Department Care Team (Late st Contact Info) Description 10/30/2023 3:40 PM EDT Office Visit General Internal Medicine [facility] [place] [address] [facility] [address] Al [address]ala [address] [address] Preoperative clearance*; Osteoarthritis of spine with radiculopathy, lumbar region; Spinal stenosis of lumbar region with neurogenic claudication; HTN, goal below 140/90; Hyperlipidemia with target LDL less than 100; Elevated hemoglobin A1c Allergies No known active allergiesdocumented as of this encounter (statuses as of 10/30/2023) Medications Medication Sig Dispensed Refills Start Date End Date Status Simvastatin 40 MG Oral Tablet (Zocor) Take 1 Tablet by mouth in the morning. 0 Active Alfuzosin HCl ER 10 MG Oral Tablet Extended Release 24 Hour Take 1 Tablet by mouth in the morning. 0 Active Losartan Potassium-HCTZ 50-12.5 MG Oral Tablet (Hyzaar) Take 0.5 Tablets by mouth in the morning. 0 09/04/2023 Active Vitamin D 25 MCG (1000 UT) Oral Tablet Take by mouth. 0 Active Gabapentin 100 MG Oral Capsule (Neurontin)Indica tions:Osteoarthri tis of spine with radiculopathy, lumbar region Take 1 Capsule by mouth at bedtime. In 5 days increase to twice a day then in 5 days 3 times a day 90 Capsule 5 09/04/2023 10/30/2023 Discontinued (Patient preference/d iscontinuati on) documented as of this encounter (statuses as of 10/30/2023) Active Problems No known active problems documented as of this encounter (statuses as of 10/30/2023) Immunizations Name Administration Dates Next Due H1N1 2009 Influenza, IM 08/04/2009 documented as of this encounter Social History Tobacco Use Types Packs/Day Years Used Date Smoking Tobacco: Never Smokeless Tobacco: Former Alcohol Use Standard Drinks/Week Comments Not Currently 0 (1 standard drink = 0.6 oz pur e alcohol) Sex and Gender Information Value Date Recorded Sex Assigned at Male 09/03/2023 9:15 PM EST Gender Identity Male 09/03/2023 9:15 PM EST Sexual Orientation Straight 09/03/2023 9: 15 PM EST Job Start Date Occupation Industry Not on file Not on file Not on file documented as of this encounter Last Filed Vital Signs Vital Sign Reading Time Taken Comments Blood Pressure 142/90 10/30/2023 3:12 PM EDT Pulse 87 10/30/2023 3:12 PM EDT Temperature 36.2 C (97.1 F) 10/30/2023 3:12 PM ED T Respiratory Rate 16 10/30/2023 3:12 PM EDT Oxygen Saturation 97% 10/30/2023 3:12 PM EDT Inhaled Oxygen Concentration - - Weight 112.9 kg (249 lb) 10/30/2023 3:12 PM EDT Height 182.9 cm (6') 10/30/2023 3:12 PM EDT Body Mass Index 33.77 10/30/2023 3:12 PM EDT documented in this encounter Functional Status Functional Status Response Date of Assess ment Are you deaf or do you have serious difficulty h earing? No 01/22/2021 Are you blind or do you have serious difficulty seeing, even when wearing glasses? No 01/22/2021 Do you have serious difficul ty walking or climbing stairs? (5 years old or older) No 01/22/2021 Do you have difficulty dress ing or bathing? (5 years old or older) No 01/22/2021 Because of a physical, menta l, or emotional condition, do you have difficulty doing errands alone such as visiting a doctor s office or shopping? (15 years old or older) No 01/23/20 21 Cognitive Status Response Date of Assessm ent Because of a physical, menta l, or emotional condition, do you have serious difficulty concentrating, remembering, or making decisions? (5 years old or older) No 01/22/2021 documented as of this encounter Progress Notes * Al Zavala, DO - 10/30/2023 3:19 PM EDT Images from the original note were not included. Pre-Operative Medical Evaluation Procedure Information Type of Surgery: T10-L2 Decompression and Fusion Referring Physician / Surgeon: Dr Olivares, [facility] Date of procedure: October 2023 Brief History of Present Illness: Patient presents office for preop medical clearance. Is planning to have elective T10-L2 decompression and fusion by Dr. Olivares for worsening spondylosis, lumbar spinal stenosis with neuro claudication. No acute cord compressive symptoms noted. Other than back pain denies any symptoms such as fever, chills, chest pain, palpitations, dyspnea, orthopnea, lightheadedness/dizziness. Had preoperative lab work , EKG, CXR done at [facility] which looked good per patient. Review of Systems Constitutional: Negative for chills, fatigue and fever. HENT: Negative for congestion, sore throat and trouble swallowing. Eyes: Negative for photophobia and pain. Respiratory: Negative for cough and shortness of breath. Cardiovascular: Negative for chest pain and palpitations. Gastrointestinal: Negative for abdominal distention, abdominal pain, nausea and vomiting. Genitourinary: Negative for dysuria and frequency. Musculoskeletal: Positive for arthralgias and back pain. Negative for neck stiffness. Skin: Negative for pallor. Neurological: Negative for dizziness, light-headedness and headaches. Psychiatric/Behavioral: Negative for sleep disturbance. The patient is not nervous/anxious. Medical History Problem List: There are no relevant problems documented for this patient. Current Medications Vitamin D 25 MCG (1000 UT) Oral Tablet, Take by mouth. Losartan Potassium-HCTZ 50-12.5 MG Oral Tablet (Hyzaar), 0.5 Tablet, Oral, Daily(AM) Alfuzosin HCl ER 10 MG Oral Tablet Extended Release 24 Hour, 10 mg, Oral, Daily(AM) Simvastatin 40 MG Oral Tablet (Zocor), 40 mg, Oral, Daily(AM) Gabapentin 100 MG Oral Capsule (Neurontin), 100 mg, Oral, HS (Patient not taking: Reported on 10/30/2023) Allergies: Patient has no known allergies. Past Medical History: has a past medical history of Hypertension. Past Surgical History: has a past surgical history that includes neck spine fusion (cerv, below c2) (N/A, 01/21/2021); Colonoscopy, Diagnostic (Rectum) (10/09/2022); Arthroplasty Knee Total (Left); shoulder arthroscopy surgery (Bilateral); and laminectomy for exploration/decompression of spinal cord and/or cauda equina, mo (08/31/2018). Social History: reports that he has never smoked. He has quit using smokeless tobacco. He reports that he does not currently use alcohol. He reports that he does not use drugs. Family History: family history includes Cancer in his father, grandmother (maternal), mother, and uncle (unspecified). Anesthesia History Type of Anesthesia: General Endotracheal Anesthesia reaction: No History of surgical complications: None known Personal history of venous thromboembolic disease: None known Physical Exam Vitals: 10/30/23 1512 Temp: 36.2 C (97.1 F) Pulse: 87 Resp: 16 SpO2: 97% BP: 142/90 BMI: 33.76 Physical Exam Constitutional: General: He is not in acute distress. Appearance: He is not ill-appearing. HENT: Head: Normocephalic and atraumatic. Right Ear: Tympanic membrane, ear canal and external ear normal. Left Ear: Tympanic membrane, ear canal and external ear normal. Nose: Nose normal. No congestion or rhinorrhea. Mouth/Throat: Mouth: Mucous membranes are moist. Pharynx: Oropharynx is clear. Eyes: General: No scleral icterus. Extraocular Movements: Extraocular movements intact. Conjunctiva/sclera: Conjunctivae normal. Pupils: Pupils are equal, round, and reactive to light. Neck: Vascular: No carotid bruit. Cardiovascular: Rate and Rhythm: Normal rate and regular rhythm. Pulses: Normal pulses. Heart sounds: Normal heart sounds. No murmur heard. No friction rub. No gallop. Pulmonary: Effort: Pulmonary effort is normal. Breath sounds: Normal breath sounds. No wheezing, rhonchi or rales. Abdominal: General: Bowel sounds are normal. There is no distension. Palpations: Abdomen is soft. There is no mass. Tenderness: There is no abdominal tenderness. Musculoskeletal: General: No swelling or tenderness. Cervical back: Normal range of motion and neck supple. Right lower leg: No edema. Left lower leg: No edema. Comments: Limited range of motion lumbar spine especially flexion/extension Skin: General: Skin is warm and dry. Coloration: Skin is not jaundiced. Findings: No rash. Neurological: General: No focal deficit present. Mental Status: He is oriented to person, place, and time. Cranial Nerves: No cranial nerve deficit. Sensory: No sensory deficit. Motor: No weakness. Psychiatric: Mood and Affect: Mood normal. Behavior: Behavior normal. Labs reviewed and are significant for: Renal function, electrolytes within normal range. Liver function looks fine. No anemia on CBC. Lipids at goal. Did demonstrate hemoglobin A1c of 6.9 which wouldbe consistent with type 2 diabetes. A1c would be a goal EKG by my review is significant for: EKG showed normal sinus rhythm without acute ischemic or arrhythmic changes. Chest x-ray demonstrates no active cardiopulmonary disease in the chest Surgical Risk Scoring Revised Cardiac Risk Index (RCRI) High-risk type of surgery (examples include vascular and any open intraperitoneal or intrathoracic procedures): 0=No History of ischemic heart disease (history of myocardial infarction or positive exercise test, current compliant of chest pain considered to be secondary to myocardia ischemia, use of nitrate therapy, or ECG with pathological Q waves; do not count prior coronary revascularization procedure unless one of the other criteria for ischemic heart disease is present): 0=No History of heart failure: 0=No History of cerebrovascular disease: 0=No Diabetes mellitus requiring treatment with insulin: 0=No Preoperative serum creatinine >2.0 mg/dL (177 micromol/L): 0=No Pt has revised cardiac index score of: No Risk Factors- 0.4% (95% CI: 0.1-0.8) Screening for Obstructive Sleep Apnea (STOP-BANG) Do you Snore loudly? 0=No Do you often feel Tired, Fatigued, or Sleep? 0=No Has anyone Observed you Stop Breathing or Choking/Gasping during sleep? 0=No Do you have or are you being treated for High Blood Pressure? 1=Yes BMI over 35? 0=No Age older than 50? 1=Yes Neck size large? (For males - 17 inches or larger, For females - 16 inches or larger) 0=No Male? 1=Yes Score 0-2:low risk NOREEN, 3-4: intermediate risk of NOREEN, 5-8: high risk NOREEN 3 Assessment and Plan Preoperative clearance (Primary) Osteoarthritis of spine with radiculopathy, lumbar region Spinal stenosis of lumbar region with neurogenic claudication HTN, goal below 140/90 Hyperlipidemia with target LDL less than 100 Elevated hemoglobin A1c Plan: Patient presents for preop medical clearance prior to planned thoracolumbar fusion. No concerning cardiopulmonary findings on exam Lab work from [facility] reviewed and looked good overall. Interestingly his A1c was 6.9 which would put him in the range of type 2 diabetes mellitus. Is still well controlled off of medications. Would notaffect his ability to have surgery. EKG and chest x-ray looked okay. Patient would be [id number] risk for any anesthesia administration. Currently medically optimized. Appropriate surgical candidate per age. From medical standpoint okay to proceed with surgery as scheduled Continue current medications. Should make sure he takes his losartan/HCTZ 50- 12.5 mg 1/2 tablet morning of surgery with sips of water. Again as elevated A1c seems to be new diagnosis, would recommend further discussion in regards to medications versus dietary management as his next follow-up. Again A1c 6.9 would be at goal and should not affect ability to have his back surgery Follow Up: Return if symptoms worsen or fail to improve, for Follow up next routine with PCP as scheduled. | For: Follow up next routine with PCP as scheduled | Check-out note: Follow-up next routine I spent a total of 40-54 minutes (exact time 45 mins) on the date of service in preparation, delivery, and documentation of the care provided to Henok Brown excluding any time spent in the performance of separately billed services. Functional Assessment They are able to walk up a flight of stairs, walk two blocks at a moderate pace, do heavy house work like vacuuming, and grocery shop. The patient's functional status is good (greater than 4 METS). 1 MET: 4 METs: 4-10 METs: Can take care of self, such as eat, dress or use the toilet. Can walk to block or go up a flight of steps. Can do heavy house work. Surgical Risk Assessment Patient is indeterminate medical risk for the listed procedure. Patient would be considered low to medium risk for anesthesia administration. Currently medically optimized. Okay to proceed with surgery as scheduled Medication adjustments: None Additional consults or testing: None. Patient currently medically optimized documented in this encounter Nursing Notes * Loin Garcia LPN - 10/30/2023 3:11 PM EDT Chief Complaint Patient presents with pre-op exam Patient is here for pre op exam. Pt had EKG and all other testing done 10/25/2023. Form is on desk in exam room. documented in this encounter Plan of Treatment Upcoming Encounters Date Type Department Care Team (Late st Contact Info) Description 11/15/2023 5:00 PM EDT Telemedicine General Internal Medicine [facility] [address] [facility] [place] [address] Chelsea Ellington MD [address] [facility] [place] [address] Scheduled Procedures Name Priority Associated Diagnoses Date/Ti me COLONOSCOPY FLEXIBLE PROXIMA L DIAGNOSTIC Recall Family history of colon cancer Health Maintenance Due Date Last Done Comments Depression Screening 1972 HIV Screening 1975 Hepatitis C Screening 1978 DTaP,Tdap,and Td Vaccines (1 - Tdap) 1979 Cologuard 2005 Fecal Occult Blood Test 2005 Sigmoidoscopy 2005 Zoster Vaccines (1 of 2) 2010 Lipid Panel 03/30/2011 03/30/2006, 03/30/2006 COVID-19 Vaccine (2022-24 season) 2023 Diabetes Screening 01/22/2024 01/21/2021, 0 01/06/2021, 01/06/2021, Additional history exists Influenza Vaccine (FLU shot) (Season Ended) 2024 08/04/2009 Colonoscopy 10/09/2032 10/09/2022, 10/09/2022 Colorectal Cancer Screening 10/09/2032 GARDASIL-HPV IMMUNIZATION SERIES Aged Out No longer eligible based on patient's age to complete this topic Hepatitis B Aged Out No longer eligi ble based on patient's age to complete this topic MENINGOCOCCAL (MENACTRA/MENVEO) Aged Out No longer eligible based on patient's age to complete this topic Pneumococcal Vaccine: Pediatrics (0 to 5 Years) and At-Risk Patients (6 to 64 Years) Aged Out No longer eligible based on patient's age to complete this topic documented as of this encounter Medical Devices Implanted Type Area Cloth Sander Device Identifier Shelf Expiration Date Model / Serial / Lot Cervical Vertigraft 5x7 - [id number] - [id number] Implanted:Qty: 1 on 01/21/2021 [place] [facility] [place] Spine Cervical LIFENET 10/03/2025 [id number] / [id number] Cervical Vertigraft 5x7 - [id number] - [id number] Implanted:Qty: 1 on 01/21/2021 by Jose Hoff[place] [facility] [place]: Spine Cervical LIFENET 10/03/2025 [id number] / [id number] Plate Vectra 34mm 134 - [id number] Implanted:Qty: 1 on 01/21/2021 by Jose Hoffmann [place] [facility] [place]: Spine Cervical SYNTHES [id number] / / Screw Cervical Brown - [id number] Implanted:Qty: 5 on 01/21/2021 by Jose Hoff[place] [facility] [place]: Spine Cervical SYNTHES : DEPUY .716 / / Depuy Vectra 4.5mm X 16mm Screw Implanted:Qty: 1 on 01/21/2021 by Jose Hoffmann [place] [facility] [place]: Spine Cervical [id number] / / documented as of this encounter Visit Diagnoses Diagnosis Preoperative clearance- Primary Preoperative examination, unspecified Osteoarthritis of spine with radiculopathy, lumbar region Spinal stenosis of lumbar region with neurogenic claudication Spinal stenosis, lumbar region, with neurogenic claudication HTN, goal below 140/90 Unspecified essential hypertension Hyperlipidemia with target LDL less than 100 Other and unspecified hyperlipidemia Elevated hemoglobin A1c Other abnormal blood chemistry documented in this encounter Advance Directives Latest Code Status on File Code Status Date Activated Date Inactivated Comments Full Code 01/21/2021 8:53 AM 01/22/2021 10:09 PM This order reflects the patients wishes and were consensually agreed upon. Question Answer Comments Discussion of Advance Directives occurred with: Patient Does the patient have a Living Will? No Does the patient have Health Care Power of Pet Resort Concierge? No Care Teams Spa Coordinator Relationship Specialty Start Date End Date James Person DO [address] [place] [address] [place] [address] PCP - General Family Medicine 09/22/22 documented as of this encounter"
--- OUTSIDE RECORDS SUMMARY | 2023-11-05 14:37 | External Medical Summary | Summary of Care ---
Author Name Unknown Organization [facility] Address [address] [facility] [place] [address] Phone [phone] Care Team Providers Care Divorce Lawyer Name Role Phone James Person DO Primary Care Provider + Encounter Details Date Type Department Care Team (Late st Contact Info) Description 11/02/2023 Patient Reported Data Patient Survey Ortho FORCE Allergies No known active allergiesdocumented as of this encounter (statuses as of 11/02/2023) Medications Medication Sig Dispensed Refills Start Date [...] UT) Oral Tablet Take by mouth. 0 Activ e documented as of this encounter (statuses as of 11/02/2023) Active Problems No known active problems documented as of this encounter (statuses as of 11/02/2023) Immunizations Name Administration Dates Next Due H1N1 [...] on file documented as of this encounter Functional Status Functional Status Response [...] No 01/22/2021 documented as of this encounter Plan of Treatment Upcoming Encounters Date Type Department Care Team (Late st Contact Info) Description 11/15/2023 5:00 PM EDT Telemedicine General Internal Medicine [facility] [address] [place] [address] Chelsea Ellington MD [address] [place] [address] Scheduled Procedures Name Priority Associated Diagnoses Date/Ti me COLONOSCOPY FLEXIBLE PROXIMA L DIAGNOSTIC Recall Family history of colon cancer Health Maintenance Due Date Last Done Comments Depression Screening 1972 HIV Screening 1975 Hepatitis C Screening 1978 DTaP,Tdap,and Td Vaccines (1 - Tdap) 1979 Cologuard 2005 Fecal Occult Blood Test 2005 Sigmoidoscopy 2005 Zoster Vaccines (1 of 2) 2010 COVID-19 Vaccine (1 - season) 2023 Influenza Vaccine (FLU shot) (Season Ended) 2024 08/04/2009 Diabetes Screening 10/23/2026 10/24/2023, 0 01/21/2021, 01/06/2021, Additional history exists Lipid Panel 10/23/2028 10/24/2023, 09/0 07/2005, 03/30/2006 Colonoscopy 10/09/2032 10/09/2022, 10/09/2022 Colorectal Cancer Screening [...] this encounter Medical Devices Implanted Type Area Dairy Husbandman Device Identifier Shelf Expiration Date Model / Serial / Lot Cervical Vertigraft 5x7 - [id number] - [id number] Implanted:Qty: 1 on 01/21/2021 [place] [facility] [place] Spine Cervical LIFENET 10/03/2025 [id number] / [id number] Cervical Vertigraft 5x7 - [id number] - [id number] Implanted:Qty: 1 on 01/21/2021 by [place] [facility] [place] Spine Cervical LIFENET 10/03/2025 [id number] / [id number] Plate Vectra 34mm 04.613.134 - [id number] Implanted:Qty: 1 on 01/21/2021 by Jose Hoff[place] [facility] [place]: Spine Cervical SYNTHES 04.613.134 / / Screw Cervical Brown - [id number] Implanted:Qty: 5 on 01/21/2021 by Jose Hoff[place] [facility] [place] Spine Cervical SYNTHES : DEPUY 04.613.716 / / Depuy Vectra 4.5mm X 16mm Screw Implanted:Qty: 1 on 01/21/2021 by Jose Hoffmann MD at [facility] N/A: Spine Cervical [id number] / / documented as of this encounter Advance Directives Latest Code Status on File Code Status Date Activated Date Inactivated Comments Full Code 01/21/2021 8:53 AM 01/22/2021 10:09 PM This order reflects the patients wishes and were consensually agreed upon. Question Answer Comments Discussion of Advance Directives occurred with: Patient Does the patient have a Living Will? No Does the patient have Health Care Power of Assistant Press Operator? No Care Teams Divorce Lawyer Relationship Specialty Start Date End Date James Person DO [address] [place] [address] [place] [address] PCP - General Family Medicine 09/22/22 documented as of this encounter
--- OUTSIDE RECORDS SUMMARY | 2023-11-05 14:37 | External Medical Summary | Summary of Care ---
Author Name Unknown Organization [facility] Address [address] [facility] [address] Phone [phone] Care Team Providers Care Parimutuel Ticket Seller Name Role Phone James Person DO Primary Care Provider + Encounter Details Date Type Department Care Team (Late st Contact Info) Description 10/24/2023 Result Scan Unspecified Department <No scans attached> Allergies No known active allergiesdocumented as of this encounter (statuses as of 10/31/2023) Medications Medication Sig Dispensed Refills Start Date [...] mouth in the morning. 0 09/04/2023 Active documented as of this encounter (statuses as of 10/31/2023) Active Problems No known active problems documented as of this encounter (statuses as of 10/31/2023) Immunizations Name Administration Dates Next Due H1N1 [...] 5:00 PM EDT Telemedicine General Internal Medicine [facility] [address] [facility] [place] [address] Chelsea Ellington MD [address] [facility] [place] [address] Scheduled Procedures Name Priority Associated Diagnoses Date/Ti me COLONOSCOPY FLEXIBLE PROXIMA L DIAGNOSTIC Recall Family history of colon cancer Health Maintenance Due Date Last Done Comments Depression Screening 1972 HIV Screening 1975 Hepatitis C Screening 1978 DTaP,Tdap,and Td Vaccines (1 - Tdap) 1979 Cologuard 2005 Fecal Occult Blood Test 2005 Sigmoidoscopy 2005 Zoster Vaccines (1 of 2) 2010 Lipid Panel 03/30/2011 10/24/2023, 09/0 07/2005, 03/30/2006 COVID-19 Vaccine (1 - 2022- season) 2023 Diabetes Screening 01/22/2024 10/24/2023, 0 01/21/2021, 01/06/2021, Additional history exists Influenza Vaccine (FLU [...] this encounter Medical Devices Implanted Type Area Vehicle Body Sander Device Identifier Shelf Expiration Date Model / Serial / Lot Cervical Vertigraft 5x7 - [id number] - [id number] Implanted:Qty: 1 on 01/21/2021 by Jose Hoffmann [place] [facility] [place]: Spine Cervical LIFENET 10/03/2025 [id number] / [id number] Cervical Vertigraft 5x7 - [id number] - [id number] Implanted:Qty: 1 on 01/21/2021 by Jose Hoffmann MD [place] [facility] [place]A: Spine Cervical LIFENET 10/03/2025 [id number] / [id number] Plate Vectra 34mm 04613.134 - [id number] Implanted:Qty: 1 on 01/21/2021 by Jose Hoffmann MD [place] [facility] [place]/A: Spine Cervical SYNTHES 04613.134 / / Screw Cervical Brown - [id number] Implanted:Qty: 5 on 01/21/2021 by Jose Hoffmann MD [place] [facility] [place]/A: Spine Cervical SYNTHES : DEPUY [id number] / / Depuy Vectra 4.5mm X 16mm Screw Implanted:Qty: 1 on 01/21/2021 by Jose Hoffmann MD [place] [facility] [place]/A: Spine Cervical 04613.766 / / documented as of this encounter Procedures Procedure Name Priority Date/Time Associated Diagnosis Comments EKG SCANNED RESULT 10/24/2023 documented in this encounter Results * EKG SCANNED RESULT (10/24/2023) 10/24/2023 No Physician Data Unknown EKG documented in this encounter Advance Directives Latest Code Status on File Code Status Date Activated Date Inactivated Comments Full Code 01/21/2021 8:53 AM 01/22/2021 10:09 PM This order reflects the patients wishes and were consensually agreed upon. Question Answer Comments Discussion of Advance Directives occurred with: Patient Does the patient have a Living Will? No Does the patient have Health Care Power of Automobile Service Advisor? No Care Teams Parimutuel Ticket Seller Relationship Specialty Start Date End Date James Person DO [address] [place] [address] [place] [address] PCP - General Family Medicine 09/22/22 documented as of this encounter
--- OUTSIDE RECORDS SUMMARY | 2023-11-05 14:37 | External Medical Summary | Summary of Care ---
Author Name Unknown Organization [facility] Address [address] [place] [address] Phone [phone] Care Team Providers Care Car Jockey Name Role Phone James Person DO Primary Care Provider + Reason for Visit * Reason Comments pre-op exam Patient is here for pre op exam. Pt had EKG and all other testing done 10/25/2023. Encounter Details Date Type Department Care Team (Late st Contact Info) Description 10/30/2023 3:40 PM EDT Office Visit General Internal Medicine [facility] [place] [facility] [address] Al Zavala [address] [address] Preoperative clearance*; Osteoarthritis of spine [...] Fusion Referring Physician / Surgeon: Dr Olivares, [facility] Date of procedure: October 2023 Brief History of Present Illness: Patient presents office for preop medical clearance. Is planning to have elective T10-L2 decompression and fusion by Dr. Olivraes for worsening spondylosis, lumbar spinal stenosis with neuro claudication. No acute cord compressive symptoms noted. Other than back pain denies any symptoms such as fever, chills, chest pain, palpitations, dyspnea, orthopnea, lightheadedness/dizziness. Had preoperative lab work , EKG, CXR done at [facility] which looked good per patient. Review of [...] cardiopulmonary findings on exam Lab work from [facility] reviewed and looked good overall. Interestingly his A1c was 6.9 which would put him in the range of type 2 diabetes mellitus. Is still well controlled off of medications. Would notaffect his ability to have surgery. EKG and chest x-ray looked okay. Patient would be ale-ag-gyumsbtr risk for any anesthesia administration. Currently medically [...] documented in this encounter Nursing Notes * Loni Garcia LPN - 10/30/2023 3:11 PM EDT [...] 5:00 PM EDT Telemedicine General Internal Medicine [facility] 200 [facility] [place] [address] Chelsea Ellington MD [address] [place] [place] [address] Scheduled Procedures Name Priority Associated Diagnoses Date/Ti [...] this encounter Medical Devices Implanted Type Area It Lead Device Identifier Shelf Expiration Date Model / Serial / Lot Cervical Vertigraft 5x7 - [id number] - [id number] Implanted:Qty: 1 on 01/21/2021 by Jose Hoffmann MD at [place] [facility] [place] N/A: Spine Cervical LIFENET 10/03/2025 [id number] / [id number] Cervical Vertigraft 5x7 - [id number] - [id number] Implanted:Qty: 1 on 01/21/2021 by Jose Hoffmann MD at OR [facility] [place] N/A: Spine Cervical LIFENET 10/03/2025 [id number] / [id number] Plate Vectra 34mm 134 - [id number] Implanted:Qty: 1 on 01/21/2021 by Jose Hoffmann MD at OR [facility] [place] N/A: Spine Cervical SYNTHES 3134 / / Screw Cervical Brown - [id number] Implanted:Qty: 5 on 01/21/2021 by Jose Hoffmann MD at OR [facility] [place] N/A: Spine Cervical SYNTHES : DEPUY .716 / / Depuy Vectra 4.5mm X 16mm Screw Implanted:Qty: 1 on 01/21/2021 by Jose Hoffmann MD at OR [facility] [place] N/A: Spine Cervical 04.613.766 / / documented [...] the patient have Health Care Power of Embossing Press Operator Apprentice? No Care Teams Car Jockey Relationship Specialty Start Date End Date James Person DO [address] [place] [address] [place] [address] PCP - General Family Medicine 09/22/22 documented as of this encounter"
--- OUTSIDE RECORDS SUMMARY | 2023-11-05 14:37 | External Medical Summary | Summary of Care ---
Author Name Unknown Organization [facility] Address [address] [place] [address] Phone [phone] Care Team Providers Care Exceptional Children'S Teacher Name Role Phone James Person DO Primary Care Provider + Reason for Visit * Reason Onset Date Comments pre-op exam 10/23/2023 Encounter Details Date Type Department Care Team (Late st Contact Info) Description 10/23/2023 Telephone General Internal Medicine [facility] 200 [facility] [place] [address] Chelsea Ellington MD 200 [place] [address] pre-op exam Allergies No known active allergiesdocumented as of [...] mouth in the morning. 0 09/04/2023 Active Gabapentin 100 MG Oral Capsule (Neurontin)Indica [...] (15 years old or older) No 01/23/20 Cognitive Status Response Date of Assessm ent Because of a physical, menta l, or emotional condition, do you have serious difficulty concentrating, remembering, or making decisions? (5 years old or older) No 01/22/2021 documented as of this encounter Miscellaneous Notes * Telephone Encounter - Aleksandra Mario OSA - 10/29/2023 3:47 PM EDT Pt called back in checking on status of request, stated he will see anyone. Pt scheduled for 10/30/[address] Martinez * Telephone Encounter - Wanda Stevens MED ASSIST - 10/29/2023 10:53 AM EDT Please assist with scheduling * Telephone Encounter - Angela Davis OSA - 10/29/2023 10:48 AM EDT Patient returned call, attempted to find appt this week but nothing available. His back SX is scheduled for Saturday 11/04 will need to be seen as soon as possible. Please call to make appt for patient * Telephone Encounter - Meredith Johnson LPN - 10/23/2023 7:43 AM EDT Received fax from [facility]. Patient is having back surgery on 11/05/23 and needs pre op clearance. Please assist with scheduling appointment LAYO. documented in this encounter Plan of Treatment Upcoming Encounters Date Type Department Care Team (Late st Contact Info) Description 11/15/2023 5:00 PM EDT Telemedicine General Internal Medicine [facility] 200 [facility] [place] [address] Chelsea Ellington MD 200 [place] [address] Scheduled Procedures Name Priority Associated Diagnoses Date/Ti [...] this encounter Medical Devices Implanted Type Area Asic Engineer Device Identifier Shelf Expiration Date Model / Serial / Lot Cervical Vertigraft 5x7 - [id number] - [id number] Implanted:Qty: 1 on 01/21/2021 by Jose Hoffmann MD at [place] [facility] [place] N/A: Spine Cervical LIFENET 10/03/2025 [id number] / [id number] Cervical Vertigraft 5x7 - [id number] - [id number] Implanted:Qty: 1 on 01/21/2021 by Jose Hoffmann MD at [place] [facility] [place] N/A: Spine Cervical LIFENET 10/03/2025 [id number] / [id number] Plate Vectra 34mm 613.134 - [id number] Implanted:Qty: 1 on 01/21/2021 by Jose Hoffmann MD at [place] [facility] [place] N/A: Spine Cervical SYNTHES 3.134 / / Screw Cervical Brown - [id number] Implanted:Qty: 5 on 01/21/2021 by Jose Hoffmann MD at [place] [facility] [place] N/A: Spine Cervical SYNTHES : DEPUY 613.716 / / Depuy Vectra 4.5mm X 16mm Screw Implanted:Qty: 1 on 01/21/2021 by Jose Hoffmann MD at [place] [facility] [place] N/A: Spine Cervical 04.613.766 / / documented [...] the patient have Health Care Power of Student Driving Instructor? No Care Teams Exceptional Children'S Teacher Relationship Specialty Start Date End Date James Person DO [address] [place] [address] [place] [address] PCP - General Family Medicine 09/22/22 documented as of this encounter
--- OUTSIDE RECORDS SUMMARY | 2023-11-05 14:37 | External Medical Summary | Summary of Care ---
Author Name Unknown Organization [facility] Address [address] [place] [address] Phone [phone] Care Team Providers Care Cellular Plastics Cutter Name Role Phone James Person DO Primary Care Provider + Encounter Details Date Type Department Care Team (Late st Contact Info) Description 10/31/[address] [facility] [address] [place] [address] Al Zavala [address] [place] [address] Allergies No known active allergiesdocumented as of [...] 5:00 PM EDT Telemedicine General Internal Medicine [facility] [address] [place] [address] Chelsea Ellington MD [address] [place] [address] Scheduled Procedures Name Priority Associated Diagnoses Date/Ti me COLONOSCOPY FLEXIBLE PROXIMA L DIAGNOSTIC Recall Family history of colon cancer Health Maintenance Due Date Last Done Comments Depression Screening 1972 HIV Screening 1975 Hepatitis C Screening 1978 DTaP,Tdap,and Td Vaccines (1 - Tdap) 1979 Cologuard 2005 Fecal Occult Blood Test 2005 Sigmoidoscopy 2005 Zoster Vaccines (1 of 2) 2010 Lipid Panel 03/30/2011 10/24/2023, 0907/2005, 03/30/2006 COVID-19 Vaccine ( season) 2023 Diabetes Screening 01/22/2024 10/24/2023, 0 [...] this encounter Medical Devices Implanted Type Area Deputy Director Device Identifier Shelf Expiration Date Model / Serial / Lot Cervical Vertigraft 5x7 - [id number] - [id number] Implanted:Qty: 1 on 01/21/2021 by Jose Hoffmann MD at [place] [facility] [place] N/A: Spine Cervical LIFENET 10/03/2025 [id number] / [id number] Cervical Vertigraft 5x7 - [id number] - [id number] Implanted:Qty: 1 on 01/21/2021 by Jose Hoffmann MD at [place] [facility] [place] N/A: Spine Cervical LIFENET 10/03/2025 [id number] / [id number] Plate Vectra 34mm 04613.134 - [id number] Implanted:Qty: 1 on 01/21/2021 by Jose Hoffmann MD at [place] [facility] N/A: Spine Cervical SYNTHES 04.613.134 / / Screw Cervical Brown - [id number] Implanted:Qty: 5 on 01/21/2021 by Jose Hoffmann MD at [place] [facility] N/A: Spine Cervical SYNTHES : DEPUY 04.613.716 / / Depuy Vectra 4.5mm X 16mm Screw Implanted:Qty: 1 on 01/21/2021 by Jose Hoffmann MD at OR [facility] N/A: Spine Cervical 04.613.766 / / documented as of this encounter Procedures Procedure Name Priority Date/Time Associated Diagnosis Comments XR CHEST 2 VIEWS Routine 10/24/2023 CHEMISTRY-OUTSIDE Routine 10/24/2023 documented in this encounter Results * (ABNORMAL) CHEMISTRY-OUTSIDE (10/24/2023) Not all results display below - see scan for full detail OUTSIDE LAB (SEE SCANNED REPORT) Comment:SCAN INCLUDES - CMP, LIPID PANEL, HBA1C CREATININE-OUTSID E LAB 0.79 0.6 - 1.4 MG/DL OUTSIDE LAB (SEE SCANNED REPORT) EGFR-OUTSIDE LAB 95.6 ML/MIN/1.7 3M2 OUTSIDE LAB (SEE SCANNED REPORT) Comment:(YONATHAN) POTASSIUM-OUTSIDE LAB 4.2 3.5 - 5.1 MMOL/L OUTSIDE LAB (SEE SCANNED REPORT) GLUCOSE-OUTSIDE LAB 102(A) 70 - 99 MG/DL OUTSIDE LAB (SEE SCANNED REPORT) HOURS FASTING OUTSID E LAB (SEE SCANNED REPORT) TRIGLYCERIDES-OUT SIDE LAB 88 0 - 150 MG/DL OUTSIDE LAB (SEE SCANNED REPORT) CHOLESTEROL-OUTSI DE LAB 153 0 - 200 MG/DL OUTSIDE LAB (SEE SCANNED REPORT) HDL-OUTSIDE LAB 52 40 - 60 MG/DL OUTSIDE LAB (SEE SCANNED REPORT) CHOL/HDL RATIO-OUTSIDE LAB 2.9 0 - 5 OUTSIDE LA B (SEE SCANNED REPORT) LDL (CALCULATED)-OUTS DAVON LAB 83 <100 MG/DL OUTSIDE LAB (SEE SCANNED REPORT) LDL (DIRECT MEASURE)-OUTSIDE LAB OUTSIDE LAB (SEE SCANNED REPORT) HEMOGLOBIN, R9L-MACOVQP LAB 6.9(A) 4.5 - 5.6 % OUTSIDE LAB (SEE SCANNED REPORT) PHOSPHORUS-OUTSID E LAB OUTSIDE LAB (SEE SCANNED REPORT) PTH-OUTSIDE LAB OUTS DAVON LAB (SEE SCANNED REPORT) MICROALBUMIN RATIO-OUTSIDE LAB OUTSIDE LA B (SEE SCANNED REPORT) PROTEIN, UA-OUTSIDE LAB OUTSIDE LAB (SEE SCANNED REPORT) HGB OUTSIDE LA B (SEE SCANNED REPORT) 10/24/2023 James Person DO LABORATORY OUTSIDE LAB (SEE SCANNED REPORT) * XR CHEST 2 VIEWS (10/24/2023) Anatomical Region Laterality Modality Chest Other 10/24/2023 Haider Olivares DO RADIOLOGY ( RAD GENERAL) documented in this encounter Advance Directives Latest Code Status on File Code Status Date Activated Date Inactivated Comments Full Code 01/21/2021 8:53 AM 01/22/2021 10:09 PM This order reflects the patients wishes and were consensually agreed upon. Question Answer Comments Discussion of Advance Directives occurred with: Patient Does the patient have a Living Will? No Does the patient have Health Care Power of Plant Utilities Engineer? No Care Teams Cellular Plastics Cutter Relationship Specialty Start Date End Date James Person DO [address] [place] [address] [place] [address] PCP - General Family Medicine 09/22/22 documented as of this encounter
[2023-11-05] MEDS: FLOSEAL HEMOSTATIC MATRIX 10ML TOP ONE (15:09)
[2023-11-05] MEDS ORDERED: DEXAMETHASONE SOD INJ 4 MG/ML VIAL ONE (15:18)
--- NOTE | 2023-11-05 15:23 | Operative Report ---
Post Operative Report Pre & Post Diagnosis Operation Date: 11/05/23 11:55 Pre-Op Diagnosis: (1) Myelopathy concurrent with and due to spinal stenosis of thoracic region Post-Op Diagnosis: (1) Myelopathy concurrent with and due to spinal stenosis of thoracic region I identified the patient and participated in the time-out.: Yes Procedure Operation Date: 11/05/23 11:55 Actual Procedures #1 decompression T10 T11, T11-T12, T12-L1 including medial facetectomies. #2 posterior spinal fusion T10-L2. #3 placement of posterior segmental instrumentation T10-L1 with connectors at L2-L3. #4 placement infuse collagen sponge combined with corresponding graft in the posterior gutters transverse processes of T10-L2. Surgeon Haider Olivares, Logistics/Shipper Loren Hanks Estimated Blood Loss 100 Findings Consistent with Post-Op Diagnosis Specimens None Indications This is a 63-year-old male well-known to the presents with evidence of thoracic myelopathy and is here for surgical invention. Description of Procedure Patient was met with identified informed consent obtained. Patient was then taken to the operative suite underwent patient placed in prone position on top of Carl frame. All bony promises well-padded eyes inspected to ensure no external precipice upon them. This point the thoracolumbar spine was prepped and draped in normal sterile fashion. Sharp dissection with the assistance of Bovie cautery was then performed down to exposing the lamina and transverse processes of T10-T11 T12-L1 and the instrumentation at L2-L3. Then performed complete laminectomy of L1, T12 T11 partial laminectomy with T10 including bilateral medial facetectomies and foraminotomies at each level addressing severe spinal stenosis and obvious canal encroachment. Pedicle screws then placed in T10 and T11 T12-L1 bilaterally with assistance of fluoroscopy and a connector placed to the proximal pankaj between L2 and L3. Pro size pankaj was then contoured and locked into position bilaterally. The transverse processes of [id number] L1 and L2 bur to subcortical bleeding bone. Infuse collagen sponge combined with Koros was then placed in the posterior gutters. 15 round NICOLE drain inserted. The incision was then closed with 1 Vicryl fascia 2-0 Vicryl subcutaneously and 4 Monocryl for final skin closure. Steri-Strips sterile dressing placed. Patient awakened taken to PACU in a stable condition. Please note spinal cord monitoring was utilized at the procedure no changes noted. Lastly Loren Hanks was present at the entire procedure and all the patient position complex portion of the surgery and final skin closure. I attest to the content of the Intraoperative Record and any orders documented therein. Any exceptions are noted below.
[2023-11-05] MEDS: fentaNYL citrate PF 100 MCG/2 ML VIAL IV PRN (16:10)
--- NOTE | 2023-11-05 16:46 | Anesthesiology Progress Note ---
Date of Service November 05, 2023 Anesthesia Post Procedure Vital Signs Vital Signs: Temp Pulse Pulse Resp BP Pulse Ox O2 Del Method 11/05/23 16:40 52 L 14 98/51 L 94 Nasal Cannula 11/05/23 16:30 36.4 C L 48 L 12 100/54 L 93 Nasal Cannula 11/05/23 16:20 51 L 20 93/50 L 93 Nasal Cannula 11/05/23 16:10 61 12 112/64 96 Nasal Cannula 11/05/23 16:00 64 15 112/64 97 Oxymask 11/05/23 15:50 64 15 111/61 97 Oxymask 11/05/23 15:43 36.3 C L 64 10 L 121/76 97 Oxymask 11/05/23 10:30 36.4 C L 92 H 20 139/93 93 Room Air O2 Flow Rate 11/05/23 16:40 2 11/05/23 16:30 2 11/05/23 16:20 2 11/05/23 16:10 3 11/05/23 16:00 3 11/05/23 15:50 4 11/05/23 15:43 6 11/05/23 10:30 Pain Intensity Right Lower Back: Pain Intensity: 5 Lower Back: Pain Intensity: 6 Transfer of Care Handoff Completed per policy Notes Mental Status: alert / awake / arousable Patient Amnestic to Procedure: Yes Nausea / Vomiting: adequately controlled Pain: adequately controlled Airway Patency, RR, SpO2: stable & adequate BP & HR: stable & adequate Hydration State: stable & adequate Anesthetic Complications: no major complications apparent and Pt Satisfied with anesthetic care
[2023-11-05] MEDS ORDERED: DO NOT ADMINISTER PNEUMOCOCCAL VACCINE PRN (17:12)
[2023-11-05] MEDS ORDERED: ONDANSETRON 4 MG OD TAB PO PRN (17:12)
[2023-11-05] MEDS ORDERED: bisacodyL 10 MG SUPP PR PRN (17:12)
[2023-11-05] MEDS ORDERED: PROMETHAZINE HCL 12.5 MG in SODIUM CHLORIDE 0.9% 50 ML IV PRN (17:12)
[2023-11-05] MEDS ORDERED: NALOXONE HCL 0.4 MG/1 ML VIAL/CARP IV PRN (17:12)
[2023-11-05] MEDS ORDERED: DO NOT ADMINISTER FLU VACCINE PRN (17:12)
[2023-11-05] MEDS ORDERED: LORazepam 0.5 MG TAB PO PRN (17:12)
[2023-11-05] MEDS ORDERED: traMADol HCL 50 MG TABLET PO PRN (17:12)
[2023-11-05] MEDS ORDERED: FAMOTIDINE 20 MG TAB PO PRN (17:12)
[2023-11-05] MEDS ORDERED: METOCLOPRAMIDE HCL INJ 5 MG/ML 2 ML VIAL IV PRN (17:12)
[2023-11-05] MEDS ORDERED: SOD PHOSPHATE/SOD BIPHOSPHATE ENEMA 132 ML BTL PR PRN (17:12)
[2023-11-05] MEDS ORDERED: ALUMINUM/MAGNESIUM SUSP 30 ML UDC PO PRN (17:12)
[2023-11-05] MEDS ORDERED: diphenhydrAMINE Capsule 25 MG CAP PO PRN (17:12)
[2023-11-05] MEDS ORDERED: hydrOXYzine HCl 25 MG TAB PO PRN (17:12)
[2023-11-05] MEDS ORDERED: ACETAMINOPHEN 1,000 MG/100 ML VIAL IV PRN (17:12)
[2023-11-05] MEDS ORDERED: HYDROmorphone INJ 0.5 MG/0.5 ML SYR IV PRN (17:12)
[2023-11-05] MEDS ORDERED: LORazepam 0.5 MG in SYRINGE 0.25 ML IV PRN (17:12)
--- NOTE | 2023-11-05 17:17 | Fluoroscopy Report ---
FL lumbar spine 2-3V CLINICAL HISTORY: T10-L2 DECOMPRESSION AND FUSION TECHNIQUE: 3 views were obtained with the C-arm in the OR with the above procedure. Total fluoroscopy time was 1.9 seconds. Radiation dose was 29.71 mGy. Comparison: Comparison is made to lumbar spine fluoroscopy 09/26/2018 FINDINGS/IMPRESSION: Intraoperative images were obtained of T10-L2 decompression. Please correlate with intraoperative fluoroscopy and operative report. ACT 112: Negative or not required by law. Electronically signed by: Sandeep Pro M.D. 11/05/2023 5:15 PM
[2023-11-05] MEDS: LACTATED RINGER'S 1,000 ML IV SCH (17:18)
[2023-11-05] MEDS: CHECK SCOPOLAMINE PATCH PLACEMENT SCH (17:21)
[2023-11-05] MEDS: oxyCODONE HCL IR 5 MG TAB (IMMEDIATE RELEASE) PO PRN (18:23)
--- NOTE | 2023-11-05 18:58 | Consultation ---
Date of Consultation November 05, 2023 Assessment & Plan (1) Myelopathy concurrent with and due to spinal stenosis of thoracic region: Status post T10-L2 decompression fusion by Dr. Olivares today DVT prophylaxis, diet, activities, pain management and disposition per primary team (2) HLD (hyperlipidemia): Continue statin (3) Hypertension: BP stable. Hold home losartan/hydrochlorothiazide. Resume from a.m. as indicated if BP rebounds and labs stable Plan DVT ppx- per primary team Dispo- per primary team Time spent- Approx 50 mins Thank you for this consult. Will continue to follow the patient during the hospital stay until discharge. History of Present Illness Requesting Physician: Dr. Olivares Reason for Consultation: Postop medical management Attending Physician: Haider Olivares, DO History of Present Illness 63-year-old male with history of hypertension, hyperlipidemia with myelopathy concurrent with and due to thoracic spinal stenosis who underwent T10-L2 decompression fusion by Dr. Olivares today. Hospitalist service was consulted for postop medical management. Patient was seen and examined at bedside in presence of . Complains of pain and just received pain medicine. Denies any fever, chills, chest pain or shortness of breath no nausea or vomiting. Reviewed his medications. He did not take any medication this morning. He does not smoke or drink alcohol. Allergies Allergy/AdvReac Type Severity Reaction Status Date / Time No Known Allergies Allergy Verified 11/05/23 10:35 Home Medications Medication Instructions Recorded Confirmed Type simvastatin 40 mg tablet 40 mg PO HS #90 tabs 07/04/23 11/05/23 Rx alfuzosin 10 mg tablet,extended 10 mg PO QDL 10/23/23 11/05/23 History release 24 hr losartan 50 mg-hydrochlorothiazide 0.5 tab PO QAM 10/23/23 11/05/23 History 12.5 mg tablet Patient History Medical History PONV (postoperative nausea and vomiting) Diabetes mellitus pt denies DM noted per previous [place] PCP records (pt now follows with [facility])- Hgb A1C 6.9 on 10/24/23 Obesity Chronic back pain WITH LLE RADICULOPATHY Hyperlipidemia Hypertension Surgical History History of lumbar surgery History of left knee replacement History of colonoscopy H/O shoulder surgery B/L History of neck surgery MULTIPLE; FUSION. ROM WNL per pt report. Family History Father Family hx of colon cancer Colorectal cancer Mother Breast cancer Grandmother (Maternal) Breast cancer Social History Smoking Status: Never smoker Second Hand Exposure: No; Do You Dip or Chew Tobacco: No; Hx Alcohol Use: Yes (RARELY) Alcohol type: hard liquor Hx Substance Use: No Preferred Language: Danish Communication Ability: Effective Upholstery Auto Trimmer Required: No Beliefs That Will Affect Care: None marital status: Current Living Situation: Spouse current occupational status: employed Feels Safe at Home: Yes Safety Concerns: Feels Safe At This Time Dental Care, Regularly: Yes Physical Activity Frequency: Daily Assistive Devices: Glasses Review of Systems Review of Systems: All systems reviewed & are unremarkable except as noted in Subjective Physical Exam Physical Exam: General: Lying comfortably in bed, not in acute distress, on NC HEENT: JOCELIN, MMM Chest: Clear breath sounds bilaterally, no wheezes or crackles CVS: Regular rate and rhythm, normal heart sounds, no murmur Abdomen: Soft, non tender, not distended, normal bowel sounds Neuro: Awake, alert, oriented, conversing well, non focal Extremities: No edema Surgical dressing intact with NICOLE drain with serosanguineous output Macdonald with clear urine Results & Data Vital Signs (Past 12 Hours) Vital Signs Temp Pulse Pulse Resp BP Pulse Ox O2 Del Method 11/05/23 17:57 62 17 103/64 95 Nasal Cannula 11/05/23 17:29 Nasal Cannula 11/05/23 17:27 36.3 C L 56 L 16 104/62 95 Nasal Cannula 11/05/23 17:05 36.3 C L 54 L 17 111/63 94 Nasal Cannula 11/05/23 16:50 55 L 14 104/53 L 94 Nasal Cannula 11/05/23 16:40 52 L 14 98/51 L 94 Nasal Cannula 11/05/23 16:30 36.4 C L 48 L 12 100/54 L 93 Nasal Cannula 11/05/23 16:20 51 L 20 93/50 L 93 Nasal Cannula 11/05/23 16:10 61 12 112/64 96 Nasal Cannula 11/05/23 16:00 64 15 112/64 97 Oxymask 11/05/23 15:50 64 15 111/61 97 Oxymask 11/05/23 15:43 36.3 C L 64 10 L 121/76 97 Oxymask 11/05/23 10:30 36.4 C L 92 H 20 139/93 93 Room Air O2 Flow Rate 11/05/23 17:57 2 11/05/23 17:29 2 11/05/23 17:27 2 11/05/23 17:05 2 11/05/23 16:50 2 11/05/23 16:40 2 11/05/23 16:30 2 11/05/23 16:20 2 11/05/23 16:10 3 11/05/23 16:00 3 11/05/23 15:50 4 11/05/23 15:43 6 11/05/23 10:30 Laboratory Results Short CBC 11/05/23 Range/Units 10:32 WBC 5.92 (4.8-10.8) K/ul Hgb 16.5 (14.0-18.0) g/dl Hct 47.0 (42.0-52.0) % Plt Count 175 (130-400) K/uL Diagnostic Findings Lumbar Spine X-Ray 11/05/23 11:55 FL lumbar spine 2-3V CLINICAL HISTORY: T10-L2 DECOMPRESSION AND FUSION TECHNIQUE: 3 views were obtained with the C-arm in the OR with the above procedure. Total fluoroscopy time was 1.9 seconds. Radiation dose was 29.71 mGy. Comparison: Comparison is made to lumbar spine fluoroscopy 09/26/2018 FINDINGS/IMPRESSION: Intraoperative images were obtained of T10-L2 decompression. Please correlate with intraoperative fluoroscopy and operative report. ACT 112: Negative or not required by law. Electronically signed by: Sandepe Pro M.D. 11/05/2023 5:15 PM
[2023-11-05] MEDS: DOCUSATE SODIUM/SENNA 50/8.6MG TAB PO SCH (20:06)
[2023-11-05] MEDS: SIMVASTATIN 40 MG TAB PO SCH (20:06)
[2023-11-05] MEDS: dexAMETHasone 6 MG in SYRINGE 0 ML IV SCH (22:28)
[2023-11-06] MEDS: POLYETHYLENE (MIRALAX) 17 GM PACK PO SCH (06:00)
[2023-11-06] MEDS: LOSARTAN/HCTZ 50/12.5MG TAB PO SCH (07:52)
[2023-11-06] MEDS: ACETAMINOPHEN 500 MG TAB PO PRN (07:55)
[2023-11-06 08:12] LABS: Hematocrit (blood only) 45.6 % (42.0-52.0); Hemoglobin 15.3 g/dl (14.0-18.0); Mean Corpuscular Hemoglobin 29.7 pg (25.0-34.0); Mean Corpuscular Hgb Conc 33.6 g/dL (32.0-36.0); Mean Corpuscular Volume 88.4 fL (80.0-100.0); Mean Platelet Volume 12.2 fL (9.4-12.4); Platelet Count 175 K/uL (130-400); RDW Coefficient of Variation 12.1 % (11.5-14.5); RDW Standard Deviation 39.4 fL (36.4-46.3); Red Blood Count 5.16 M/uL (4.70-6.10); White Blood Count 14.18 K/ul (4.8-10.8)
[2023-11-06 08:33] LABS: BUN Creatinine Ratio 25.7 (10-20); Calcium 8.8 mg/dl (8.6-10.3); Creatinine Clr Calc Pharmacy 139.1 ml/min; Est GFR (African American) 116.4 ml/min; Est GFR (Non-African American) 100.4 ml/min; Potassium 4.2 mmol/L (3.5-5.1)
[2023-11-06 08:36] LABS: Basophils # (auto) 0.01 K/uL (0.00-0.20); Basophils % (auto) 0.1 %; Immature Granulocytes # (auto) 0.08 K/uL (0.01-0.20); Immature Granulocytes % (auto) 0.6 %; Lymphocytes # (auto) 0.61 K/uL (1.20-3.40); Lymphocytes % (auto) 4.3 %; Monocytes # (auto) 0.45 K/uL (0.11-0.59); Monocytes % (auto) 3.2 %; Neutrophils # (auto) 13.03 K/uL (1.40-6.50); Neutrophils % (auto) 91.8 %; RBC Morphology Unremarkable
--- NOTE | 2023-11-06 09:43 | Orthopedic Progress Note ---
Date of Service November 06, 2023 Assessment & Plan (1) Myelopathy concurrent with and due to spinal stenosis of thoracic region: Plan: At this time continue physical therapy monitor his NICOLE output anticipate discharge home in the next few days. Admission and Anticipated Discharge Date Admission Date: November 05, 2023 Subjective Back pain controlled leg symptoms markedly improved Physical Exam Physical Exam: On exam the patient is up and ambulating. Discussed when to testing. Results & Data Vital Signs (Past 12 Hours) Vital Signs Temp Pulse Pulse Resp BP Pulse Ox O2 Del Method 11/06/23 08:00 Room Air 11/06/23 07:48 36.4 C L 61 16 117/71 94 Room Air 11/06/23 03:32 36.5 C 60 18 112/71 98 Nasal Cannula 11/05/23 23:52 36.4 C L 60 18 103/58 L 95 Room Air O2 Flow Rate 11/06/23 08:00 11/06/23 07:48 11/06/23 03:32 2 11/05/23 23:52 Queries Orthopedic Spine Obesity: Yes
[2023-11-06] MEDS: TAMSULOSIN HCL 0.4 MG CAP PO SCH (10:33)
--- NOTE | 2023-11-06 16:31 | Hospitalist Progress Note ---
Date of Service November 06, 2023 Assessment & Plan (1) Myelopathy concurrent with and due to spinal stenosis of thoracic region: Plan: Status post T10-L2 decompression fusion by Dr. Olivares on 11/05/2023 DVT prophylaxis, diet, activities, pain management and disposition per primary team Minimal back pain without any radiation Management will be as per Ortho Will monitor CBC and electrolytes (2) HLD (hyperlipidemia): Plan: Continue statin (3) Hypertension: Plan: BP stable. Hold home losartan/hydrochlorothiazide. Resume from a.m. as indicated if BP rebounds and labs stable Plan DVT ppx- per primary team Dispo- per primary team Remains medically stable Admission and Anticipated Discharge Date Admission Date: November 05, 2023 Subjective 11/06/2023 The patient was seen and examined in medical floor He is a status post T10-L2 decompression and fusion and spinal cord monitoring on 11/05/2023 Has been feeling much better Denies any chest pain, palpitation or shortness of breath Review of Systems Review of Systems: All systems reviewed and are unremarkable except as noted below Physical Exam Physical Exam: Sitting on a chair without any acute distress Constitutional: well developed, well nourished and + obese; not ill appearing Eyes: PERRL, conjunctivae normal, anicteric sclerae ENMT: external ear and nose normal, oropharynx normal Neck: trachea midline, no thyromegaly Respiratory: + respiratory distress Auscultation: lungs clear to auscultation bilaterally Cardiovascular: Rate/Rhythm: regular rate, regular rhythm and + tachycardic Heart Sounds: normal S1 and normal S2; no murmur Extremities: + edema Gastrointestinal (Abdomen): Inspection/Auscultation: normal bowel sounds; abdomen not distended Percussion/Palpation: + abdomen tender and abdomen soft Musculoskeletal: Back pain but no acute arthritis involving any of the joint Neurologic: normal touch/pain/proprioception and moves all extremities; no focal motor deficits Psychiatric: A+Ox3, euthymic affect Lymphatic: no cervical or axillary lymphadenopathy Results & Data Results & Data Vital Signs (Past 12 Hours) Vital Signs Temp Pulse Resp BP Pulse Ox O2 Del Method 11/06/23 15:11 36.7 C 69 16 120/75 95 Room Air 11/06/23 08:00 Room Air 11/06/23 07:48 36.4 C L 61 16 117/71 94 Room Air Laboratory Results Short CBC 11/06/23 Range/Units 06:54 WBC 14.18 H (4.8-10.8) K/ul Hgb 15.3 (14.0-18.0) g/dl Hct 45.6 (42.0-52.0) % Plt Count 175 (130-400) K/uL BMP 11/06/23 06:54 Sodium 136 Potassium 4.2 Chloride 104 Carbon Dioxide 23 BUN 18 Creatinine 0.70 Glucose 148 H Calcium 8.8 Medications Administered Current Inpatient Medications Acetaminophen (Acetaminophen 500 Mg Tab) 1,000 mg PO Q8H PRN PRN Reason: MILD Pain Scale 1,2,3 & Pre PT Stop: 12/05/23 17:11 Last Admin: 11/06/23 07:55 Dose: 1,000 mg Al Hydrox/Mg Hydrox/Simethicone (Aluminum/Magnesium Susp 30 Ml Udc) 30 ml PO Q6H PRN PRN Reason: Dyspepsia Stop: 12/05/23 17:11 Bisacodyl (Bisacodyl 10 Mg Supp) 10 mg NE DAILY PRN PRN Reason: Constipation Stop: 12/05/23 17:11 Diphenhydramine HCl (Diphenhydramine Capsule 25 Mg Cap) 25 mg PO Q6H PRN PRN Reason: Allergic Rhinitis/Insomnia Stop: 12/05/23 17:11 Famotidine (Famotidine 20 Mg Tab) 20 mg PO Q12H PRN PRN Reason: Dyspepsia Stop: 12/05/23 17:11 HCTZ/Losartan Potassium (Losartan/Hctz 50/12.5mg Tab) 0.5 tab PO QAM RAISSA Stop: 12/06/23 08:59 Last Admin: 11/06/23 07:52 Dose: 0.5 tab Hydromorphone HCl (Hydromorphone Inj 0.5 Mg/0.5 Ml Syr) 0.5 mg IV Q3H PRN PRN Reason: MODERATE Pain (Scale 4,5,6) & Pre PT Stop: 11/19/23 17:11 Hydromorphone HCl (Hydromorphone Inj 1 Mg/Ml Syringe) 1 mg IV Q3H PRN PRN Reason: SEVERE Pain (Scale 7,8,9,10) Stop: 11/19/23 17:11 Hydroxyzine HCl (Hydroxyzine Hcl 25 Mg Tab) 25 mg PO Q8H PRN PRN Reason: Anxiety Stop: 12/05/23 17:11 Promethazine HCl 12.5 mg/ (Sodium Chloride) 50.5 mls @ 202 mls/hr IV Q6H PRN PRN Reason: Nausea &/or Vomiting Stop: 12/05/23 17:11 Acetaminophen (Ofirmev) 1,000 mg in 100 mls @ 400 mls/hr IV Q8H PRN PRN Reason: Pain Rating 1-3 & Pre PT Stop: 11/06/23 17:13 Lorazepam 0.5 mg/ Syringe 0.5 mls @ 2 mls/min IV Q8H PRN; Protocol PRN Reason: Sedation/Anxiety Stop: 12/05/23 17:11 Influenza Virus Vaccine Quadrival (Do Not Administer Flu Vaccine) 1 each N/A PRN PRN PRN Reason: Notification Stop: 12/05/23 17:11 Lorazepam (Lorazepam 0.5 Mg Tab) 0.5 mg PO Q8H PRN PRN Reason: Sedation/Anxiety Stop: 12/05/23 17:11 Magnesium Hydroxide (Magnesium Hydroxide Susp 30 Ml Udc) 30 ml PO Q24H PRN PRN Reason: Constipation Stop: 12/05/23 17:11 Metoclopramide HCl (Metoclopramide Hcl Inj 5 Mg/Ml 2 Ml Vial) 10 mg IV Q6H PRN PRN Reason: Nausea &/or Vomiting Stop: 12/05/23 17:11 Miscellaneous (Remove Transderm-Scop Patch) 1 each N/A ONE ONE Stop: 11/08/23 06:01 Miscellaneous (Check Scopolamine Patch Placement) 1 each N/A QS RAISSA Stop: 11/08/23 05:59 Last Admin: 11/06/23 07:52 Dose: 1 each Naloxone HCl (Naloxone Hcl 0.4 Mg/1 Ml Vial/Carp) 0.1 mg IV Q5M PRN PRN Reason: Oversedation/Resp depression Stop: 12/05/23 17:11 Ondansetron HCl (Ondansetron Inj 2 Mg/Ml 2 Ml Vial) 4 mg IV Q6H PRN PRN Reason: Nausea &/or Vomiting Stop: 12/05/23 17:11 Ondansetron HCl (Ondansetron 4 Mg Od Tab) 4 mg PO Q6H PRN PRN Reason: Nausea Stop: 12/05/23 17:11 Oxycodone HCl (Oxycodone Hcl Ir 5 Mg Tab (Immediate Release)) 5 - 10 mg PO Q4H PRN PRN Reason: Pain & Pre PT Stop: 11/19/23 17:11 Last Admin: 11/06/23 13:18 Dose: 10 mg Pneumococcal Polyvalent Vaccine (Do Not Administer Pneumococcal Vaccine) 1 each N/A PRN PRN PRN Reason: Notification Stop: 12/05/23 17:11 Polyethylene Glycol (Polyethylene (Miralax) 17 Gm Pack) 17 gm PO Q6 [facility] Stop: 12/06/23 05:59 Last Admin: 11/06/23 12:06 Dose: 17 gm Senna/Docusate Sodium (Docusate Sodium/Senna 50/8.6mg Tab) 2 tab PO HS [facility] Stop: 12/05/23 20:59 Last Admin: 11/05/23 20:06 Dose: 2 tab Simvastatin (Simvastatin 40 Mg Tab) 40 mg PO HS [facility] Stop: 12/05/23 20:59 Last Admin: 11/05/23 20:06 Dose: 40 mg Sodium Biphosphate/Sodium Phosphate (Sod Phosphate/Sod Biphosphate Enema 132 Ml Btl) 132 ml NE ONE PRN PRN Reason: Constipation Stop: 12/05/23 17:11 Tamsulosin HCl (Tamsulosin Hcl 0.4 Mg Cap) 0.4 mg PO QDL [facility]; Protocol Stop: 12/06/23 11:29 Last Admin: 11/06/23 10:33 Dose: 0.4 mg Tramadol HCl (Tramadol Hcl 50 Mg Tablet) 50 - 100 mg PO Q4H PRN PRN Reason: Moderate-Severe pain & Pre PT Stop: 12/05/23 17:11
[2023-11-07] MEDS: MAGNESIUM HYDROXIDE SUSP 30 ML UDC PO PRN (04:51)
[2023-11-07 08:21] LABS: Basophils # (auto) 0.02 K/uL (0.00-0.20); Basophils % (auto) 0.1 %; Eosinophils # (auto) 0.01 K/uL (0.00-0.50); Eosinophils % (auto) 0.1 %; Hematocrit (blood only) 40.5 % (42.0-52.0); Hemoglobin 13.5 g/dl (14.0-18.0); Immature Granulocytes % (auto) 0.7 %; Lymphocytes # (auto) 1.53 K/uL (1.20-3.40); Lymphocytes % (auto) 10.5 %; Mean Corpuscular Hemoglobin 29.9 pg (25.0-34.0); Mean Corpuscular Hgb Conc 33.3 g/dL (32.0-36.0); Mean Corpuscular Volume 89.8 fL (80.0-100.0); Mean Platelet Volume 11.6 fL (9.4-12.4); Monocytes # (auto) 1.14 K/uL (0.11-0.59); Monocytes % (auto) 7.8 %; Neutrophils # (auto) 11.74 K/uL (1.40-6.50); Neutrophils % (auto) 80.8 %; Platelet Count 138 K/uL (130-400); RDW Coefficient of Variation 12.4 % (11.5-14.5); RDW Standard Deviation 40.3 fL (36.4-46.3); Red Blood Count 4.51 M/uL (4.70-6.10); White Blood Count 14.54 K/ul (4.8-10.8)
[2023-11-07 08:47] LABS: BUN Creatinine Ratio 31.4 (10-20); Calcium 8.6 mg/dl (8.6-10.3); Creatinine Clr Calc Pharmacy 139.1 ml/min; Est GFR (African American) 116.4 ml/min; Est GFR (Non-African American) 100.4 ml/min
--- NOTE | 2023-11-07 13:23 | Orthopedic Progress Note ---
Date of Service November 07, 2023 Assessment & Plan (1) Myelopathy concurrent with and due to spinal stenosis of thoracic region: Plan: Henok is postoperative day 2 status post T10-L2 decompression instrumented fusion. Will continue with ambulation and physical therapy. Continue with pain control. Maintain NICOLE drain. DVT prophylaxis in the form teds and SCDs. Anticipate discharge home tomorrow. Admission and Anticipated Discharge Date Admission Date: November 05, 2023 Subjective This Henok is postoperative day 2 status post T10-L2 decompression and instrumented fusion. He is doing quite well. Leg pain greatly improved. Back pain is controlled. NICOLE drain output last shift was 65 cc. He is up and ambulatory around the hallways. No other complaints. Review of Systems Review of Systems: All systems reviewed & are unremarkable except as noted in HPI & below Physical Exam Physical Exam: Sitting in chair no acute distress Alert and oriented x 3 Thoracolumbar dressing is clean dry and intact with functioning NICOLE drain Calf soft nontender bilaterally. Strength intact bilateral lower extremities Results & Data Vital Signs (Past 12 Hours) Vital Signs Temp Pulse Pulse Resp BP Pulse Ox O2 Del Method 11/07/23 07:41 36.4 C L 59 L 16 130/81 95 Room Air 11/07/23 04:18 36.9 C 89 14 135/72 99 Nasal Cannula O2 Flow Rate 11/07/23 07:41 11/07/23 04:18 2 Queries Orthopedic Spine Obesity: Yes
--- NOTE | 2023-11-07 13:47 | Hospitalist Progress Note ---
Date of Service November 07, 2023 Assessment & Plan (1) Myelopathy concurrent with and due to spinal stenosis of thoracic region: Plan: Status post T10-L2 decompression fusion by Dr. Olivares on 11/05/2023 DVT prophylaxis, diet, activities, pain management and disposition per primary team Minimal back pain without any radiation Management will be as per Ortho Remains medically stable with unremarkable labs (2) HLD (hyperlipidemia): Plan: Continue statin (3) Hypertension: Plan: BP stable. Hold home losartan/hydrochlorothiazide. Resume from a.m. as indicated if BP rebounds and labs stable Blood pressure remains stable Plan DVT ppx- per primary team Dispo- per primary team Admission and Anticipated Discharge Date Admission Date: November 05, 2023 Subjective 11/06/2023 The patient was seen and examined in medical floor He is a status post T10-L2 decompression and fusion and spinal cord monitoring on 11/05/2023 Has been feeling much better Denies any chest pain, palpitation or shortness of breath 11/07/2023 The patient was seen and examined in medical floor He has been feeling much better The back pain and leg symptoms are improved following surgery Denies any other significant symptoms Review of Systems Review of Systems: All systems reviewed and are unremarkable except as noted below Physical Exam Physical Exam: Sitting on a chair without any acute distress Constitutional: well developed, well nourished and + obese; not ill appearing Eyes: PERRL, conjunctivae normal, anicteric sclerae ENMT: external ear and nose normal, oropharynx normal Neck: trachea midline, no thyromegaly Respiratory: + respiratory distress Auscultation: lungs clear to auscultation bilaterally Cardiovascular: Rate/Rhythm: regular rate, regular rhythm and + tachycardic Heart Sounds: normal S1 and normal S2; no murmur Extremities: + edema Gastrointestinal (Abdomen): Inspection/Auscultation: normal bowel sounds; abdomen not distended Percussion/Palpation: + abdomen tender and abdomen soft Musculoskeletal: No acute arthritis involving any of the joint Neurologic: normal touch/pain/proprioception and moves all extremities; no focal motor deficits Psychiatric: A+Ox3, euthymic affect Lymphatic: no cervical or axillary lymphadenopathy Results & Data Results & Data Vital Signs (Past 12 Hours) Vital Signs Temp Pulse Pulse Resp BP Pulse Ox O2 Del Method 11/07/23 07:41 36.4 C L 59 L 16 130/81 95 Room Air 11/07/23 04:18 36.9 C 89 14 135/72 99 Nasal Cannula O2 Flow Rate 11/07/23 07:41 11/07/23 04:18 2 Laboratory Results Short CBC 11/07/23 Range/Units 07:50 WBC 14.54 H (4.8-10.8) K/ul Hgb 13.5 L (14.0-18.0) g/dl Hct 40.5 L (42.0-52.0) % Plt Count 138 (130-400) K/uL BMP 11/07/23 07:50 Sodium 139 Potassium 4.0 Chloride 106 Carbon Dioxide 27 BUN 22 Creatinine 0.70 Glucose 130 H Calcium 8.6 Medications Administered Current Inpatient Medications Acetaminophen (Acetaminophen 500 Mg Tab) 1,000 mg PO Q8H PRN PRN Reason: MILD Pain Scale 1,2,3 & Pre PT Stop: 12/05/23 17:11 Last Admin: 11/07/23 12:35 Dose: 1,000 mg Al Hydrox/Mg Hydrox/Simethicone (Aluminum/Magnesium Susp 30 Ml Udc) 30 ml PO Q6H PRN PRN Reason: Dyspepsia Stop: 12/05/23 17:11 Bisacodyl (Bisacodyl 10 Mg Supp) 10 mg AR DAILY PRN PRN Reason: Constipation Stop: 12/05/23 17:11 Diphenhydramine HCl (Diphenhydramine Capsule 25 Mg Cap) 25 mg PO Q6H PRN PRN Reason: Allergic Rhinitis/Insomnia Stop: 12/05/23 17:11 Famotidine (Famotidine 20 Mg Tab) 20 mg PO Q12H PRN PRN Reason: Dyspepsia Stop: 12/05/23 17:11 HCTZ/Losartan Potassium (Losartan/Hctz 50/12.5mg Tab) 0.5 tab PO QAM RAISSA Stop: 12/06/23 08:59 Last Admin: 11/07/23 08:01 Dose: 0.5 tab Hydromorphone HCl (Hydromorphone Inj 0.5 Mg/0.5 Ml Syr) 0.5 mg IV Q3H PRN PRN Reason: MODERATE Pain (Scale 4,5,6) & Pre PT Stop: 11/19/23 17:11 Hydromorphone HCl (Hydromorphone Inj 1 Mg/Ml Syringe) 1 mg IV Q3H PRN PRN Reason: SEVERE Pain (Scale 7,8,9,10) Stop: 11/19/23 17:11 Hydroxyzine HCl (Hydroxyzine Hcl 25 Mg Tab) 25 mg PO Q8H PRN PRN Reason: Anxiety Stop: 12/05/23 17:11 Promethazine HCl 12.5 mg/ (Sodium Chloride) 50.5 mls @ 202 mls/hr IV Q6H PRN PRN Reason: Nausea &/or Vomiting Stop: 12/05/23 17:11 Lorazepam 0.5 mg/ Syringe 0.5 mls @ 2 mls/min IV Q8H PRN; Protocol PRN Reason: Sedation/Anxiety Stop: 12/05/23 17:11 Influenza Virus Vaccine Quadrival (Do Not Administer Flu Vaccine) 1 each N/A PRN PRN PRN Reason: Notification Stop: 12/05/23 17:11 Lorazepam (Lorazepam 0.5 Mg Tab) 0.5 mg PO Q8H PRN PRN Reason: Sedation/Anxiety Stop: 12/05/23 17:11 Magnesium Hydroxide (Magnesium Hydroxide Susp 30 Ml Udc) 30 ml PO Q24H PRN PRN Reason: Constipation Stop: 12/05/23 17:11 Last Admin: 11/07/23 04:51 Dose: 30 ml Metoclopramide HCl (Metoclopramide Hcl Inj 5 Mg/Ml 2 Ml Vial) 10 mg IV Q6H PRN PRN Reason: Nausea &/or Vomiting Stop: 12/05/23 17:11 Miscellaneous (Remove Transderm-Scop Patch) 1 each N/A ONE ONE Stop: 11/08/23 06:01 Miscellaneous (Check Scopolamine Patch Placement) 1 each N/A QS RAISSA Stop: 11/08/23 05:59 Last Admin: 11/07/23 08:02 Dose: 1 each Naloxone HCl (Naloxone Hcl 0.4 Mg/1 Ml Vial/Carp) 0.1 mg IV Q5M PRN PRN Reason: Oversedation/Resp depression Stop: 12/05/23 17:11 Ondansetron HCl (Ondansetron Inj 2 Mg/Ml 2 Ml Vial) 4 mg IV Q6H PRN PRN Reason: Nausea &/or Vomiting Stop: 12/05/23 17:11 Ondansetron HCl (Ondansetron 4 Mg Od Tab) 4 mg PO Q6H PRN PRN Reason: Nausea Stop: 12/05/23 17:11 Oxycodone HCl (Oxycodone Hcl Ir 5 Mg Tab (Immediate Release)) 5 - 10 mg PO Q4H PRN PRN Reason: Pain & Pre PT Stop: 11/19/23 17:11 Last Admin: 11/07/23 12:35 Dose: 10 mg Pneumococcal Polyvalent Vaccine (Do Not Administer Pneumococcal Vaccine) 1 each N/A PRN PRN PRN Reason: Notification Stop: 12/05/23 17:11 Polyethylene Glycol (Polyethylene (Miralax) 17 Gm Pack) 17 gm PO Q6 [facility] Stop: 12/06/23 05:59 Last Admin: 11/07/23 12:36 Dose: 17 gm Senna/Docusate Sodium (Docusate Sodium/Senna 50/8.6mg Tab) 2 tab PO HS RAISSA Stop: 12/05/23 20:59 Last Admin: 11/06/23 21:54 Dose: 2 tab Simvastatin (Simvastatin 40 Mg Tab) 40 mg PO HS [facility] Stop: 12/05/23 20:59 Last Admin: 11/06/23 21:54 Dose: 40 mg Sodium Biphosphate/Sodium Phosphate (Sod Phosphate/Sod Biphosphate Enema 132 Ml Btl) 132 ml AR ONE PRN PRN Reason: Constipation Stop: 12/05/23 17:11 Tamsulosin HCl (Tamsulosin Hcl 0.4 Mg Cap) 0.4 mg PO QDL RAISSA; Protocol Stop: 12/06/23 11:29 Last Admin: 11/07/23 12:36 Dose: 0.4 mg Tramadol HCl (Tramadol Hcl 50 Mg Tablet) 50 - 100 mg PO Q4H PRN PRN Reason: Moderate-Severe pain & Pre PT Stop: 12/05/23 17:11
[2023-11-08 10:33] LABS: Basophils # (auto) 0.01 K/uL (0.00-0.20); Basophils % (auto) 0.1 %; Eosinophils # (auto) 0.04 K/uL (0.00-0.50); Eosinophils % (auto) 0.5 %; Immature Granulocytes # (auto) 0.04 K/uL (0.01-0.20); Immature Granulocytes % (auto) 0.5 %; Lymphocytes % (auto) 16.4 %; Mean Corpuscular Hemoglobin 30.4 pg (25.0-34.0); Mean Corpuscular Hgb Conc 34.1 g/dL (32.0-36.0); Mean Corpuscular Volume 89.1 fL (80.0-100.0); Mean Platelet Volume 12.1 fL (9.4-12.4); Monocytes # (auto) 0.84 K/uL (0.11-0.59); Monocytes % (auto) 10.6 %; Neutrophils # (auto) 5.72 K/uL (1.40-6.50); Neutrophils % (auto) 71.9 %; Platelet Count 141 K/uL (130-400); RDW Coefficient of Variation 12.6 % (11.5-14.5); RDW Standard Deviation 41.2 fL (36.4-46.3); White Blood Count 7.95 K/ul (4.8-10.8)
--- NOTE | 2023-11-08 10:40 | Discharge Summary ---
Date of Service November 08, 2023 Admission HPI Per Admitting Provider This is a 63-year-old male who presents with evidence of thoracic myelopathy. He is subsequently here for surgical invention. Principal Diagnosis Thoracic spinal stenosis with myelopathy Discharge Data Allergies Allergy/AdvReac Type Severity Reaction Status Date / Time No Known Allergies Allergy Verified 11/05/23 10:35 Consultations 11/05/23 17:12 Consult Hospitalist Routine Procedures Performed Operation Date: 11/05/23 11:55 Actual Procedures p T10-L2 Decompression and Fusion, Spinal Cord Monitoring(Not Applicable) - Daija Olivares DO Ordered Studies 11/05/23 11:55 [place] lumbar spine 2-3V Routine Hospital Course (1) Myelopathy concurrent with and due to spinal stenosis of thoracic region: Patient L1 thoracolumbar decompression fusion tolerated as well as negative orthopedic for postoperative. Postoperatively progressed appropriately. Leg symptoms markedly improved. NICOLE drain decreased appropriately. Excellent strength testing. Socially discharged home. Discharge orders instructions f ound in chart for further review. Total Time Total Time Spent Total Time Spent (In Minutes): 20 minutes Discharge Plan Discharge Items Patient Disposition: Home - Self-Care Reason For Visit: POSTOP Discharge Diagnosis: Thoracic spinal stenosis with myelopathy Activity: As commented below Non-emergency contact: Primary Care Provider Call non-emergency contact if: you have any medication questions Follow-up/Referrals: James Person DO [Primary Care Provider] - Diet: Regular Addtl Attending Provider Instructions: ACTIVITY RECOMMENDATIONS: SELF CARE INSTRUCTIONS AFTER THORACIC/LUMBAR FUSIONS 1. You may walk to your tolerance. It is good exercise for your legs and back. Expect some back and intermittent leg aches and pains. 2. You may perform "counter-top" level activities (make a sandwich, sky with a project, etc.). 3. No bending or lifting of more than 10 pounds or back twisting of any nature (roll like a log when turning in bed). 4. You may ride in a car for 20-30 minutes at a time. No driving until after your first visit with your doctor. 5. Frequent changes of position and restricting sitting to 30 minutes at a time will help limit the amount of back spasms and stiffness you may experience. 6. You may discontinue the use of ambulatory aids (cane, crutches, etc.) once your strength and confidence allow. 7. You may assisted living director the shower and let water strike your incision when you arrive home at least once daily. Do not take a tub bath, sit in a hot tub or go into a swimming pool until after your first recheck in the office. SPECIAL CARE INSTRUCTIONS: VERY IMPORTANT TO READ AND REVIEW A. Your surgical incision has been closed with a cosmetic suture under the skin that will dissolve in about 6 weeks. In 14 days, you can use a pair of clean scissors and cut the suture that is left outside of the skin at the ends of your incision. 1. The small skin tapes can be removed 7 days after surgery if they have not fallen off by that point. 2. You may keep the wound open to air as much as possible to promote healing after post-op day number 5 unless told otherwise by your doctor. 3. If you think the wound looks like it is becoming infected (redness or worsening drainage) and/or you are experiencing fever, chill or worsening back pain and muscle spasms, contact the office so that we may evaluate you as soon as possible. B. Complications are uncommon, but please contact us if you have any signs or symptoms of: 1. wound infection (fever higher than 102.5 degrees F, redness, separation of wound, drainage, or increasing pain from the incision) 2. blood clots in legs (pain, swelling, redness and warmth in legs) 3. urinary tract infection (fever higher than 102.5 degrees F, burning upon urination or increased frequency of urination) 4. nerve problems (inability to walk on your toes or heels, numbness, loss of bowel or bladder control) 5. any other symptoms that concern you C. Please call the office at if you have any concerns or questions about your operation or recovery. D. No smoking! Smoking drastically decreases the chance of a solid fusion. E. Do not take any anti-inflammatory medications (Indocin, Advil, Motrin, Aspirin, Naprosyn, etc.) as these may inhibit the chance of a solid fusion. Tylenol is okay to take for pain. MANAGING PAIN AFTER SPINAL SURGERY 1. Narcotic medication is intended for short-term use and will be provided for surgical pain. Surgical pain usually lasts for a period of 4-6 weeks. Narcotic medication includes Percocet, Vicodin, Darvocet, Tylenol #3 or Lortab. 2. Longer-term pain is more appropriately treated with non-narcotic medication such as Tylenol ES. 3. Muscle spasm is not appropriately treated with narcotics. Muscle relaxers such as Soma, Flexeril or Skelaxin can be used along with Tylenol ES. 4. Remember that we all live with some "aches and pains". This is not unusual or uncommon after an injury or as we get older. a. Back pain is expected and may include muscle spasms for 4 to 6 weeks after surgery. The pain should gradually improve. If the pain worsens for no apparent reason, please contact the office. b. Intermittent leg pain may also be experienced and should not be concerned about unless it worsens for no apparent reason. If so, please contact the office. 5. We will provide appropriate medication within the normal guidelines of their prescribed use. We will also be very cautious and aware of potential abuse and extended duration of patients' medication needs. a. Pain medications are for your comfort and to assist with sleep and rest so that the tissue can heal. They are not provided in order to return to normal activity and should not be used through the day. To do so or worsening pain at night can result from ongoing tissue damage and development of tolerance to the prescribed medicine. 6. Please allow 2-3 days to process refills. Prescriptions will not be mailed but must be picked up at the office. FOLLOW UP VISIT: Keep your scheduled follow-up appointment. Any questions, please call the office at . Pending Studies at Discharge: No Stand-Alone Forms: [facility] [employer], Smoking Cessation Medications and DC Order Prescriptions: New tramadol 50 mg tablet 50 mg PO Q6H PRN (Reason: pain, moderate) Qty: 30 0RF oxycodone 5 mg tablet 5 mg PO Q6H PRN (Reason: pain) Qty: 30 0RF Continued simvastatin 40 mg tablet 40 mg PO HS Qty: 90 3RF alfuzosin 10 mg tablet extended release 24 hr 10 mg PO QDL Rx Instructions: administer after the same meal each day losartan-hydrochlorothiazide 50-12.5 mg tablet 0.5 tab PO QAM Discharge Orders: Discharge Order (Routine); Ordered 11/08/23 Ordered By: Haider Olivares Admission Data Admit Date/Time: 11/05/23 15:27 Attending Provider: Haider Olivares Admit Provider: Haider Olivares Primary Care Provider: James Person Other Providers: Cheryle Mar
[2023-11-08 10:47] LABS: BUN Creatinine Ratio 29.1 (10-20); Blood Urea Nitrogen 23 mg/dl (6-23); Carbon Dioxide 28 mmol/L (21-32); Chloride 104 mmol/L (98-107); Creatinine Clr Calc Pharmacy 123.2 ml/min; Est GFR (African American) 110.8 ml/min; Est GFR (Non-African American) 95.6 ml/min; Glucose 133 mg/dl (70-99(Fasting))
[2023-11-08 11:39] LABS: Potassium 4.2 mmol/L (3.5-5.1)
--- NOTE | 2023-11-08 13:29 | Hospitalist Progress Note ---
Date of Service November 08, 2023 Assessment & Plan (1) Myelopathy concurrent with and due to spinal stenosis of thoracic region: Plan: Status post T10-L2 decompression fusion by Dr. Olivares on 11/05/2023 DVT prophylaxis, diet, activities, pain management and disposition per primary team Minimal back pain without any radiation Management will be as per Ortho Has been ambulating without any difficulties and there is no more drainage from the wound Labs reviewed and he remains medically stable He will be discharged by the primary service today (2) HLD (hyperlipidemia): Plan: Continue statin (3) Hypertension: Plan: BP stable. Hold home losartan/hydrochlorothiazide. Resume from a.m. as indicated if BP rebounds and labs stable Blood pressure remains stable Plan DVT ppx- per primary team Dispo- per primary team Admission and Anticipated Discharge Date Admission Date: November 05, 2023 Subjective 11/06/2023 The patient was seen and examined in medical floor He is a status post T10-L2 decompression and fusion and spinal cord monitoring on 11/05/2023 Has been feeling much better Denies any chest pain, palpitation or shortness of breath 11/07/2023 The patient was seen and examined in medical floor He has been feeling much better The back pain and leg symptoms are improved following surgery Denies any other significant symptoms 11/08/2023 The patient was seen and examined in medical floor He has been feeling much better His drain is out and he has been ambulating without any difficulties Will be discharged home from primary service today Review of Systems Review of Systems: All systems reviewed and are unremarkable except as noted below Physical Exam Physical Exam: Sitting on a chair without any acute distress Constitutional: well developed, well nourished and + obese; not ill appearing Eyes: PERRL, conjunctivae normal, anicteric sclerae ENMT: external ear and nose normal, oropharynx normal Neck: trachea midline, no thyromegaly Respiratory: + respiratory distress Auscultation: lungs clear to auscultation bilaterally Cardiovascular: Rate/Rhythm: regular rate, regular rhythm and + tachycardic Heart Sounds: normal S1 and normal S2; no murmur Extremities: + edema Gastrointestinal (Abdomen): Inspection/Auscultation: normal bowel sounds; abdomen not distended Percussion/Palpation: + abdomen tender and abdomen soft Neurologic: normal touch/pain/proprioception and moves all extremities; no focal motor deficits Psychiatric: A+Ox3, euthymic affect Lymphatic: no cervical or axillary lymphadenopathy Results & Data Results & Data Vital Signs (Past 12 Hours) Vital Signs Temp Pulse Pulse Resp BP Pulse Ox O2 Del Method 11/08/23 10:52 36.6 C 54 L 62 16 135/87 97 11/08/23 07:27 36.6 C 62 16 135/87 97 Room Air Laboratory Results Short CBC 11/08/23 Range/Units 09:51 WBC 7.95 (4.8-10.8) K/ul Hgb 14.0 (14.0-18.0) g/dl Hct 41.0 L (42.0-52.0) % Plt Count 141 (130-400) K/uL BMP 11/08/23 11/08/23 09:51 10:56 Sodium TNP 136 Potassium TNP 4.2 Chloride 104 Carbon Dioxide 28 BUN 23 Creatinine 0.79 Glucose 133 H Calcium 9.0 Medications Administered Current Inpatient Medications Acetaminophen (Acetaminophen 500 Mg Tab) 1,000 mg PO Q8H PRN PRN Reason: MILD Pain Scale 1,2,3 & Pre PT Stop: 12/05/23 17:11 Last Admin: 11/07/23 12:35 Dose: 1,000 mg Al Hydrox/Mg Hydrox/Simethicone (Aluminum/Magnesium Susp 30 Ml Udc) 30 ml PO Q6H PRN PRN Reason: Dyspepsia Stop: 12/05/23 17:11 Bisacodyl (Bisacodyl 10 Mg Supp) 10 mg ND DAILY PRN PRN Reason: Constipation Stop: 12/05/23 17:11 Diphenhydramine HCl (Diphenhydramine Capsule 25 Mg Cap) 25 mg PO Q6H PRN PRN Reason: Allergic Rhinitis/Insomnia Stop: 12/05/23 17:11 Famotidine (Famotidine 20 Mg Tab) 20 mg PO Q12H PRN PRN Reason: Dyspepsia Stop: 12/05/23 17:11 HCTZ/Losartan Potassium (Losartan/Hctz 50/12.5mg Tab) 0.5 tab PO QAM RAISSA Stop: 12/06/23 08:59 Last Admin: 11/08/23 08:37 Dose: 0.5 tab Hydromorphone HCl (Hydromorphone Inj 0.5 Mg/0.5 Ml Syr) 0.5 mg IV Q3H PRN PRN Reason: MODERATE Pain (Scale 4,5,6) & Pre PT Stop: 11/19/23 17:11 Hydromorphone HCl (Hydromorphone Inj 1 Mg/Ml Syringe) 1 mg IV Q3H PRN PRN Reason: SEVERE Pain (Scale 7,8,9,10) Stop: 11/19/23 17:11 Hydroxyzine HCl (Hydroxyzine Hcl 25 Mg Tab) 25 mg PO Q8H PRN PRN Reason: Anxiety Stop: 12/05/23 17:11 Promethazine HCl 12.5 mg/ (Sodium Chloride) 50.5 mls @ 202 mls/hr IV Q6H PRN PRN Reason: Nausea &/or Vomiting Stop: 12/05/23 17:11 Lorazepam 0.5 mg/ Syringe 0.5 mls @ 2 mls/min IV Q8H PRN; Protocol PRN Reason: Sedation/Anxiety Stop: 12/05/23 17:11 Influenza Virus Vaccine Quadrival (Do Not Administer Flu Vaccine) 1 each N/A PRN PRN PRN Reason: Notification Stop: 12/05/23 17:11 Lorazepam (Lorazepam 0.5 Mg Tab) 0.5 mg PO Q8H PRN PRN Reason: Sedation/Anxiety Stop: 12/05/23 17:11 Magnesium Hydroxide (Magnesium Hydroxide Susp 30 Ml Udc) 30 ml PO Q24H PRN PRN Reason: Constipation Stop: 12/05/23 17:11 Last Admin: 11/07/23 04:51 Dose: 30 ml Metoclopramide HCl (Metoclopramide Hcl Inj 5 Mg/Ml 2 Ml Vial) 10 mg IV Q6H PRN PRN Reason: Nausea &/or Vomiting Stop: 12/05/23 17:11 Naloxone HCl (Naloxone Hcl 0.4 Mg/1 Ml Vial/Carp) 0.1 mg IV Q5M PRN PRN Reason: Oversedation/Resp depression Stop: 12/05/23 17:11 Ondansetron HCl (Ondansetron Inj 2 Mg/Ml 2 Ml Vial) 4 mg IV Q6H PRN PRN Reason: Nausea &/or Vomiting Stop: 12/05/23 17:11 Ondansetron HCl (Ondansetron 4 Mg Od Tab) 4 mg PO Q6H PRN PRN Reason: Nausea Stop: 12/05/23 17:11 Oxycodone HCl (Oxycodone Hcl Ir 5 Mg Tab (Immediate Release)) 5 - 10 mg PO Q4H PRN PRN Reason: Pain & Pre PT Stop: 11/19/23 17:11 Last Admin: 11/08/23 11:43 Dose: 5 mg Pneumococcal Polyvalent Vaccine (Do Not Administer Pneumococcal Vaccine) 1 each N/A PRN PRN PRN Reason: Notification Stop: 12/05/23 17:11 Polyethylene Glycol (Polyethylene (Miralax) 17 Gm Pack) 17 gm PO Q6 [facility] Stop: 12/06/23 05:59 Last Admin: 11/08/23 12:09 Dose: Not Given Senna/Docusate Sodium (Docusate Sodium/Senna 50/8.6mg Tab) 2 tab PO HS [facility] Stop: 12/05/23 20:59 Last Admin: 11/07/23 21:35 Dose: Not Given Simvastatin (Simvastatin 40 Mg Tab) 40 mg PO HS [facility] Stop: 12/05/23 20:59 Last Admin: 11/07/23 21:35 Dose: 40 mg Sodium Biphosphate/Sodium Phosphate (Sod Phosphate/Sod Biphosphate Enema 132 Ml Btl) 132 ml ND ONE PRN PRN Reason: Constipation Stop: 12/05/23 17:11 Tamsulosin HCl (Tamsulosin Hcl 0.4 Mg Cap) 0.4 mg PO QDL [facility]; Protocol Stop: 12/06/23 11:29 Last Admin: 11/08/23 11:16 Dose: 0.4 mg Tramadol HCl (Tramadol Hcl 50 Mg Tablet) 50 - 100 mg PO Q4H PRN PRN Reason: Moderate-Severe pain & Pre PT Stop: 12/05/23 17:11
== END 2023-11-08 13:56 | disposition home or self-care (01) | DRG 460 ==
LOC: ASU 10:14 → 3N 15:27